=== PATIENT | female | born 1960 | race Caucasian/White ===

== ENCOUNTER → 2025-04-20 | Outpatient (CLI) | payer SELFPAY, OTHER ==
--- NOTE | 2025-04-20 09:53 | CT_ITS ---
PROCEDURE: EXTREMITY UPPER WITHOUT CONTRA 04/20/2025 REASON FOR EXAM: R OLECRANON FRACTURE TECHNIQUE: EXTREMITY UPPER WITHOUT CONTRA Coronal and Sagittal reconstruction series were provided. One or more dose reduction techniques were used (e.g., Automated exposure control, adjustment of the mA and/or kV according to patient size, use of iterative reconstruction technique. RADIATION DOSE SUMMARY: CTDlvol: 27.53 mGy DLP: 569.69 mGycm COMPARISON: None FINDINGS: Bones: Comminuted fracture of the proximal ulna at the base of the olecranon. The trochlea appears intact. Tiny fracture fragment is seen adjacent to the radial head. Capitellum in distal humerus intact otherwise. Joints: No dislocation Soft Tissues: Mild soft tissue hematoma at the fracture site. CT/Extremity Upper without Contra IMPRESSION: Fractures of the proximal ulna at the base of the olecranon with 2 or more frac ture fragments. fracture of the radial head Reading Location: [facility]
== END | disposition home or self-care (01) ==
PROVIDERS: Referring Provider Orthopaedic Surgery Sports Medicine; Visit Provider Orthopaedic Surgery Sports Medicine
DX: S52.021A Displaced fracture of olecranon process without intraarticular extension of right ulna, initial encounter for closed fracture (principal)
CPT/HCPCS: 73200

== ENCOUNTER 2025-04-26 10:05 | Day surgery (SDC) | payer SELFPAY, OTHER ==
[2025-04-26] VITALS (13 sets, daily range): BP systolic 147–180; BP diastolic 71–92; PULSE 56–79; RESP 12–18; TEMP 36–36.4; O2SAT 81–100; BMI 31.5
[2025-04-26] MEDS: Lactated Ringers 1,000 ML 15 ML IV ×2 (10:49→13:44)
--- NOTE | 2025-04-26 11:00 | RAD_ITS ---
PROCEDURE: ELBOW 2 VIEWS; O.R. FLUORO FOR C-ARM 04/26/2025 REASON FOR EXAM: RT ELBOW ORIF TECHNIQUE: Intraoperative fluoroscopy was performed for fixation of a proximal right ulnar fracture site with plate and screws. 4 fluoroscopic images were also obtained. COMPARISON: Right elbow study of 04/20/2020 RAD/Elbow 2 Views IMPRESSION: Intraoperative fluoroscopy was performed for fixation of a proximal right ulnar fracture site with plate and screws. 4 fluoroscopic images were also obtained. Reading Location: [facility]
--- NOTE | 2025-04-26 11:00 | RAD_ITS ---
PROCEDURE: ELBOW 2 VIEWS; O.R. FLUORO FOR C-ARM 04/26/2025 REASON FOR EXAM: RT ELBOW ORIF TECHNIQUE: Intraoperative fluoroscopy was performed for fixation of a proximal right ulnar fracture site with plate and screws. 4 fluoroscopic images were also obtained. COMPARISON: Right elbow study of 04/20/2020 RAD/O.R. Fluoro for C-Arm IMPRESSION: Intraoperative fluoroscopy was performed for fixation of a proximal right ulnar fracture site with plate and screws. 4 fluoroscopic images were also obtained. Reading Location: [place] [address]
--- NOTE | 2025-04-26 11:12 | PCM.PRE.AN2 ---
ASA Classification* ASA Classification ASA Classification: 1 Assessment & Plan Anesthesia* Anesthesia Assessment Anesthesia Assessment: Discussed sedation and/or anesthesia options, risks, benefits, and alternatives with patient/parents/legal guardian/POA. Questions invited. The patient/parents/legal guardian/POA seems to understand and agrees to proceed with anesthesia plan. Reviewed the physical assessment, medical history, allergy history and patient home medications list prior to surgery/procedure/anesthetic and documented any changes. Performed airway and anesthesia risk assessments. Anesthesia Type Anesthesia Type: General and Block History Source History Obtained from:: Patient and Chart Anesthesia Focused Assessment* Temperature: 97.6 F Pulse Rate: 70 Blood Pressure: 165/92 Respiratory Rate: 16 Pulse Ox: 97 Oxygen Delivery Method: Room Air Airway Assessment Mouth opens: >3 cm Mallampati Score: I Teeth Condition: Intact and Missing Neck Range of motion (ROM): Full ROM Labs Anesthesia Preop lab: CBC WBC 4.3 K/mm3 (4.4-11.0) L 06/13/12 10:00 06/13/12 RBC 3.97 M/mm3 (4.2-5.4) L 06/13/12 10:00 06/13/12 Hgb 11.8 g.dL (12.0-15.0) L 06/13/12 10:00 06/13/12 Hct 35.4 % (37-47) L 06/13/12 10:00 06/13/12 Plt Count 196 K/mm3 (150-450) 06/13/12 10:00 06/13/12 CHEMISTRY Potassium 3.8 mmol/L (3.5-5.1) 06/13/12 10:00 06/13/12 Sodium 140 mmol/L (136-145) 06/13/12 10:00 06/13/12 Magnesium 2.1 mg/dL (1.8-2.4) 06/13/12 10:00 06/13/12 Phosphorus 2.8 mg/dL (2.5-4.9) 06/13/12 10:00 06/13/12 BUN 9 mg/dL (7-18) 06/13/12 10:00 06/13/12 Creatinine 0.5 mg/dL (0.6-1.0) L 06/13/12 10:00 06/13/12 Glucose 84 mg/dL (70-110) 06/13/12 10:00 06/13/12 COAG Pre-Assessment Diagnosis/Proposed Procedure Planned Operative Procedure(s): Right olecranon open reduction internal fixation, possible radial head arthroplasty Anesthesia History 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 When Was Last Pacemaker Check QUESTION #4 FULL TEXT: You/Your Family Experience fever (hyperthermia) with Anesthesia Last Oral Intake Last Oral intake: Last Oral Intake NPO since 20:00 04/26/25 10:43 Meds taken in AM with sips of No 04/26/25 10:43 water? Meds patient instructed to take am of surgery PONV PONV - lease administrator: PONV - lease administrator Female HX of Motion Sickness HX of N/V After Surgery Non-Smoker Duration of Surgery greater than 60 minutes Number of Risk Factors PONV Score Height & Weight Height & Weight: Anesthesia: Height & Weight Height 5 ft 3 in 04/26/25 10:43 Weight: 80.8 kg 04/26/25 10:43 Body Mass Index (BMI) 31.5 04/26/25 10:43 Respiratory Assessment Respiratory Assessment - lease administrator: Respiratory Tract Infection Hx - lease administrator Hx Respiratory Tract Infection STOP Sleep Apnea STOP Sleep Apnea - lease administrator: STOP Sleep Apnea - lease administrator Hx Hypertension Hx Sleep Apnea CPAP BIPAP Do you snore loudly (louder than talking or can be heard Do you often feel tired/ fatigued/ sleepy during daytime? Has anyone observed you stop breathing during sleep? STOP Results QUESTION #5 FULL TEXT : Do you snore loudly (louder than talking or can be heard through closed doors)? 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 Specify any problems Hx of Preganancy in last 3 Months Nurse Filling Out Transfusion & Questions: Date: Time: Patient unable to answer at this time (ie. confused, unrespo /Reproduction History /Reproductive History - lease administrator: /Reproductive Hx- lease administrator Hx Now Gestational Age (in weeks): EDC: Hx Hx Para Hx Section SAB Active Medications Active Medications: Current Medications Generic Name Dose Route Start Last Admin Trade Name Freq PRN Reason Stop Dose Admin Cefazolin Sodium 2 gm/ Sodium 110 mls @ 200 mls/hr 04/26/25 12:00 Chloride IV 04/26/25 12:32 INTRAOP ONE Lactated Ringer's 1,000 mls @ 15 mls/hr 04/26/25 10:30 04/26/25 10:49 IV 15 mls/hr .Q48H KIRA Administration PFSH Medical History Fracture of right olecranon process Home Medications ?Medication ?Instructions ?Recorded ?Last Taken ?Type glucosamine sulfate 500 mg tablet 500 mg PO QDAY 04/20/25 04/25/25 History (Glucosamine) lactobacillus combination no.9 4 4,000 mmu cells PO QDAY 04/20/25 04/25/25 History billion cell capsule (Adult 50 Plus Probiotic) Allergy/AdvReac Type Severity Reaction Status Date / Time No Known Allergies Allergy Verified 04/26/25 10:35 Surgical History Hx of section History of appendectomy Review of Systems (Anesthesia) ROS Narrative System reviewed and no additional complaints, except as documented.
--- NOTE | 2025-04-26 11:40 | PCM.HP.STD ---
HPI - General HPI Narrative STARR GUZMAN, is a 65 F who presents for right olecranon open reduction internal fixation, radial head fragment excision and possible radial head arthroplasty. No changes to history and physical exam. Risks alternatives benefits discussed as well as postoperative instructions and narcotic counseling. The patient understands right upper extremity marked okay to proceed with surgery they understood no further questions or concerns. MR#: [id number] Acct: [id number] Name: STARR GUZMAN Rep #: [id number] : 1960 Provider: Dr. Bradford Hogue MD Age/Sex: 64/F Location: [facility] [place].[facility] Status: Signed Intake Vital Signs 04/20/2508:36 Height 5 ft 3 in Weight: 178 lb BMI 31.5 BP 130/84 H Position Sitting Pulse 77 Temp 98.3 F Temp Source Oral Pulse Oximetry (%) 97 Oxygen Delivery Method room air Intake Visit Reasons: RIGHT ELBOW Chief Complaint: Elbow Pain Is patient in pain?: No Allergies No Known Allergies Allergy (Verified 04/23/25 08:09) Medications ?Medication ?Instructions ?Recorded ?Confirmed ?Type glucosamine sulfate 500 mg tablet 500 mg PO QDAY 04/20/25 04/23/25 History (Glucosamine) lactobacillus combination no.9 4 4,000 mmu cells PO QDAY 04/20/25 04/23/25 History billion cell capsule (Adult 50 Plus Probiotic) PFSH Medical History Fracture of right olecranon process Surgical History Hx of section History of appendectomy HPI RIGHT ELBOW Details: This documentation accurately reflects the service provided and the decisions made by me, Dr. Bradford Hogue MD 04/23/25 0808. Part of today?s visit was documented by [ ], acting as scribe. STARR GUZMAN is a 64 year old F here today for R olecranon fracture. 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 per referral 64 F who presents to the office today for initial evaluation of right elbow pain. Patient states that 5 days ago she fell hitting her right elbow and wrist. She has had significant pain particularly to the elbow since then. Patient denies numbness, tingling or loss of range of motion however states that range of motion of the elbow causes worse pain. No previous injuries to the same. No other associated symptoms or alleviating/aggravating factors. Supplemental Info [facility] Imaging Services [address] [place] [address] Extremity Upper without Contra MR#: [id number] Acct: [id number] Name: STARR GUZMAN Rep #: [id number] : 1960 F 64 From: Anton Chavez DO PCP: Care Physician,No Primary Status: REG CLI Study: Extremity Upper without Contra Date of Exam: 04/20/25 Exam# [id number] Ordering Dr: Bradford Hogue MD PROCEDURE: EXTREMITY UPPER WITHOUT CONTRA 04/20/2025 REASON FOR EXAM: R OLECRANON FRACTURE TECHNIQUE: EXTREMITY UPPER WITHOUT CONTRA Coronal and Sagittal reconstruction series were provided. One or more dose reduction techniques were used (e.g., Automated exposure control, adjustment of the mA and/or kV according to patient size, use of iterative reconstruction technique. RADIATION DOSE SUMMARY: CTDlvol: 27.53 mGy DLP: 569.69 mGycm COMPARISON: None FINDINGS: Bones: Comminuted fracture of the proximal ulna at the base of the olecranon. The trochlea appears intact. Tiny fracture fragment is seen adjacent to the radial head. Capitellum in distal humerus intact otherwise. Joints: No dislocation Soft Tissues: Mild soft tissue hematoma at the fracture site. CT/Extremity Upper without Contra IMPRESSION: Fractures of the proximal ulna at the base of the olecranon with 2 or more fracture fragments. fracture of the radial head Reading Location: [facility] May be a radial head fracture, under 30 percent of joint surface. I independently reviewed the imaging. Concur with radiologist report. Coding Level of Care Code Off vis,new,level 4 Diagnoses Closed comminuted fracture of proximal end of right ulna S52.091A Closed comminuted fracture of proximal end of right radius S52.181A Assessment and Plan Assessment and Plan (1) Closed comminuted fracture of proximal end of right ulna: Status: Acute Plan: 64-year-old female with a proximal ulna olecranon fracture. There also appears to be radial head fracture under 30% of the surface of the radial head multiple small comminuted fragments. After reviewing the x-rays the patient's functional demand and on the dominant arm overall my recommendation would be more toward surgical management of this the other option would be nonsurgical management ...but with the latter more high rates of stiffness due to prolonged immobilization and potential displacement of the fracture as well as chance of leaving the intra-articular fragments in the joint and causing long-term problems such as osteoarthritis. That being said surgery has its own set of risks like hardware irritation infection neurovascular injuries or other problems. Patient understands wishes to go ahead with right olecranon open reduction internal fixation, radial head fragment excision and possible radial head arthroplasty. We will try to get this done week she understands no further concerns. Pros and cons risks and benefits were discussed with the patient including but not limited to infection, pain, stiffness, bleeding, damage to surrounding structures, neurovascular injury, recurrence or retear, failure or wear of hardware or fixation, instability, fracture, deep vein thrombosis and pulmonary embolism, anesthetic risks, , patient dissatisfaction, need for further surgery and other risks. Patient understood and wished to proceed with surgery, and signed the informed consent documentation. (2) Closed comminuted fracture of proximal end of right radius: Status: Acute Ortho Exam General General: Yes no acute distress Neurologic: Yes alert and Yes oriented x3 Psychologic: Yes reasonable and appropriate Right Elbow Skin/Wound: Yes CDI, No eccymosis, No erythema and Yes Swelling Sensation: Radial: I, Ulnar: I and Median: I Motor: EPL: 5, FDP-2: 5 and 1st Dorsal Interosseous: 5 ELBOW: nvi, strong radial pulse, hand a bit swollen, no pain hand or shoulder. [facility] Medical History Fracture of right olecranon process Home Medications ?Medication ?Instructions ?Recorded ?Last Taken ?Type glucosamine sulfate 500 mg tablet 500 mg PO QDAY 04/20/25 04/25/25 History (Glucosamine) lactobacillus combination no.9 4 4,000 mmu cells PO QDAY 04/20/25 04/25/25 History billion cell capsule (Adult 50 Plus Probiotic) Allergy/AdvReac Type Severity Reaction Status Date / Time No Known Allergies Allergy Verified 04/26/25 10:35 Surgical History Hx of section History of appendectomy Vital Signs Vital Signs Vital Signs: 04/26/25 10:43 04/26/25 10:43 04/26/25 11:18 Temperature 97.6 F L 97.6 F L Temperature Source Temporal Pulse Rate 70 70 Respiratory Rate 16 16 Respiratory Pattern Normal Blood Pressure 165/92 H 165/92 H Blood Pressure Mean 116 Blood Pressure Source Monitor Blood Pressure Position Sitting Blood Pressure Location Right Arm Pulse Ox 97 97 Oxygen Delivery Method Room Air Room Air Weight Weight: 178 lb 2.136 oz Body Mass Index (BMI) 31.5
--- NOTE | 2025-04-26 12:58 | PCM.OPRPT ---
Problems Associated Problem List Diagnoses (1) Closed comminuted fracture of proximal end of right radius: (2) Closed comminuted fracture of proximal end of right ulna: (3) Fracture of right olecranon process: Procedures Musculoskeletal [id number]: Other Procedure See Report Operative Report (Standard) Operative Information Date of Procedure: 04/26/25 Pre-Operative Diagnosis: R proximal ulna fracture and proximal radial fracture Post-Operative Diagnosis: R proximal ulna fracture and proximal radial fracture Surgery/Procedure Performed: R proximal ulnar ORIF, excision radial head fragment, non op mgt radial head fracture uniforms sales representative: Yes Manager Stylist: henrique Tasks completed by executive personal assistant: Retracting Additional baking assistant?: No Type of Anesthesia: General and Local RN Documented Start/Stop Times: Operation Date: 04/26/25 12:00 Case Time Into Pre-Op 04/26/25 10:16 Out of Pre-Op 04/26/25 11:46 Anesthesia Start 04/26/25 11:47 Into Room 04/26/25 11:47 Procedure Start 04/26/25 12:06 Procedure End 04/26/25 12:56 Procedure Start Time: 12:06 Procedure Stop Time: 12:56 Select all DRAINS/GRAFTS/IMPLANTS that apply: Implanted device Implanted device details: arthex olecranon pre contoured plate long Estimated Blood Loss: 20 Specimen collected: No Description of surgery: Patient brought to the operating room theater. Placed supine on the table. General anesthesia induced. 2 g IV Ancef administered prior to the start of the procedure. Bed turned to 90 degrees. Hand table to the patient's right side. Tourniquet applied right upper extremity appropriately padded. All bony prominences padded. SCDs on the legs. Upper extremity prepped and draped in the usual sterile fashion with chlorhexidine-based prep solution allowing over 3 minutes drying time prior to draping. Preoperative timeout performed to confirm the site patient and the surgery. Began by elevating the limb inflating the tourniquet to 250 mmHg. Made a standard posterior incision at the proximal subcutaneous border of the ulna curved laterally around the olecranon tip. Carried the dissection down through skin and subcutaneous tissue achieved meticulous hemostasis. Incised the interval between the FCU and the ECU. Dissected down to the subcutaneous border of the proximal ulna identified the fracture site cleared away any interposed hematoma and fracture periosteum. Worked through the lateral comminution aspect of the ulnar fracture to the radiocapitellar joint thoroughly irrigated the joint and removed any intra-articular fragments. The radial head appeared to be intact with good cartilage surface with very small fracture fragments with a stable radial capitellar joint. I achieved a preliminary reduction. I did this in extension of the elbow. I made a small 2.5 mm drill hole distal to the fracture site then used a pointed reduction forcep clamp across that to thoroughly compress at the fracture site this achieved good anatomic reduction. I then selected the [employer]ynthe[employer] proximal ulna precontoured long plate. I placed this on the bone. I made a split in the triceps proximally to try to get the plate as onto the bone as possible proximally. I then secured this with a top hat device as well as drilling a 3.5 mm fully threaded cortical screw distal to the fracture site through the oblong hole in the plate. I ensured the plate was appropriately placed on the subcutaneous border of the ulna growth with AP and lateral radiographs. I then inserted 3 more fully threaded cortical screws which achieved quite good purchase distal to the fracture site. I then also placed the 2.7 millimeter screws proximally in a locking screw fashion that were all extra-articular 2 that were rafting screws and 6 screws total. Final radiographs were taken. Full range of motion no crepitus full flexion and extension no blocks to extension full pronation and supination with the elbow stable to varus and valgus stresses. Final radiographs taken and saved onto the system. Wound thoroughly irrigated. Tourniquet let down meticulous hemostasis achieved. Subcutaneous tissue closed with 2-0 Vicryl suture and skin with 3-0 Monocryl. Skin cleaned with wet and dry dressing. 10 cc of quarter percent bupivacaine instilled in and around the soft tissues. Skin cleaned with wet and dry dressing followed application of Steri-Strips Adaptic 4 x 4 gauze ABD dressing posterior prefabricated fiberglass splint with the elbow at 90 degrees of flexion gently overwrapped with Andriy bandage and placed into an upper extremity sling. Patient woken up from general anesthetic transferred off the operating room table taken to postanesthetic care unit in stable condition. All sponge needle instrument counts were correct no complications plan to the patient discharged home according to day surgery criteria and follow-up in the office within 2 weeks time. cpt 92209, [id number], [id number] Surgical Findings: as above Complications Complications: No Admit VTE Documentation VTE Present on Admission: No VTE Mechan Device Prophylaxis: SCD's VTE Pharm Prophylaxis ordered?: No Reason prophylaxis not ordered: Treatment Not Indicated
--- NOTE | 2025-04-26 13:08 | EX.PCM.DISCH ---
Discharge Instructions Diet Discharge Diet: No restrictions Activity Discharge Activity: Return to Normal Activity Ice area for (Minutes): 10 Lifting Restrictions: keep arm in sling and splint until FU Additional Activity Instructions:: ok for finger movement Dressing / Incision Call your doctor if your incision/area has: Continuous Slow Oozing, Sudden Increased Bleeding, Increased Pain/ Swelling, Increased Redness, Foul Smelling Discharge and Swelling at the incision site Call your doctor if you observe: Fever of 101 or Higher, Coldness, Increased Pain and Numbness or Tingling Change Dressing in: leave in place till F/U Cleanse incision/area with: Do not get Incision Wet Follow Up Care Please Follow Up With: Bradford Hogue MD When: within 2 weeks Test Results: Test results from this visit will be discussed in further detail at your follow-up appointment, if applicable. Discharge Plan Admission Attending Provider: Bradford Hogue Primary Care Provider: Care Physician,No Primary Instructions Print Language: [place] Discharge Orders/Prescriptions Prescriptions: New oxycodone-acetaminophen [Endocet] 5-325 mg tablet 1 tab PO Q4H MDD 6 PRN (Reason: pain) 5 Days Qty: 20 0RF No Action glucosamine sulfate [Glucosamine] 500 mg tablet 500 mg PO QDAY Rx Instructions: administer with a meal Adult 50 Plus Probiotic 4 billion cell capsule 4,000 mmu cells PO QDAY Rx Instructions: administer with a meal Referrals / Follow Up: Bradford Hogue MD [Med Staff - Active Staff] - Care Physician,No Primary [Primary Care Provider] - Disposition Disposition (needs filled in before D/C Order can be placed): Home, Self Care
--- NOTE | 2025-04-26 13:10 | PCM.POST.ANE ---
Anesthesia: Postop Eval I Current Vital Signs Temperature: 97 F Pulse Rate: 63 Blood Pressure: 147/83 Respiratory Rate: 12 Pulse Ox: 93 Oxygen Delivery Method: Nasal Cannula Oxygen Flow Rate (L/min): 2 Assessment Airway patent: Yes Spontaneous unlabored respirations: Yes Mental status: Awake and Calm nausea: No Vomiting: No Anesthesia Complication: No Fluid Hydration Crystalloid volume administer (ml): 900 Total IV fluid infused: 900 Progress Note Anesthesia document: Postop Eval 1 completed: Yes
--- NOTE | 2025-04-26 14:42 | POSTOPAN2_ITS ---
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 Spontaneous unlabored Yes 04/26/25 13:10 SMALL PRODUCTS II [email or web address] respirations Mental status Awake,Calm 04/26/25 13:10 SMALL PRODUCTS II [email or web address] nausea No 04/26/25 13:10 SMALL PRODUCTS II [email or web address] Vomiting No 04/26/25 13:10 SMALL PRODUCTS II [email or web address] Anesthesia Postop Eval I: Fluid Summary Crystalloid volume administer 900 04/26/25 13:10 SMALL PRODUCTS II [email or web address] (ml) Colloids volume administered ( ml) Blood Product volume administered (ml) Total IV fluid infused 900 04/26/25 13:10 SMALL PRODUCTS II [email or web address] Anesthesia Postop Eval I: Summary Notes Anesthesia Complication No 04/26/25 13:10 SMALL PRODUCTS II 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
--- NOTE | 2025-04-26 14:42 | PCM.POSTANE2 ---
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 Anesthesia Postop Eval I: Fluid Summary Crystalloid volume administer 900 04/26/25 13:10 ROLL FORMING MACHINE OPERATOR.[email or web address] (ml) Colloids volume administered ( ml) Blood Product volume administered (ml) Total IV fluid infused 900 04/26/25 13:10 ROLL FORMING MACHINE 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
[2025-04-26] MEDS: HYDROcodone Bitartrate/Apap 5/325 Tablet PO (15:26)
--- OUTSIDE RECORDS SUMMARY | 2025-04-26 18:34 | XMS RPT_ITS | CCD ---
Author Organization [facility] Team Providers Care Musician Instrumental Name Role Phone Dr. Fran Ho MD Attending Provider Colton Martin Attending Provider [phone] Bradford Hogue MD Attending Provider [id number] [phone] Bradford Hogue MD Referring Provider Care Physician, No Primary Primary Care Provider Unavailable Fran Ho Attending Unavailable Bradford Hogue Attending Unavailable Bradford Hogue Referring Unavailable Care Physician, No Primary Primary Care Unava ilable Bradford Hogue Attending Unavailable Bradford Hogue Referring Unavailable Colton Martin Attending Unavailable Bradford Hogue Attending Unavailable Bradford Hogue MD Other Provider [phone] Medications Current Medications Medication Drug Class(es) Dates Sig (Normalized) Sig (Original) acetaminophen 325 mg / oxyCODONE hydrochloride 5 mg oral tablet (1 source) Opioid Agonist Start: 04-26-2025 take 1 tablet by mouth every four hours as needed for pain Oxycodone-Acetamino phen (Endocet) 5-325 mg tablet Active 1 {tbl} PO Q4H as needed for pain 20 5 0 April 26, 2025 Fracture of olecranon process of right ulna Closed comminuted fracture of proximal end of right radius Closed comminuted fracture of proximal end of right ulna glucosamine sulfate 500 mg oral tablet (4 sources) Start: 04-20-2025 take 1 tablet by mouth once daily Glucosamine Sulfate (Glucosamine) 500 mg tablet Active 500 mg PO daily April 20, 2025 12:00am administer with a meal Lactobacillus Combination No.9 (Adult 50 Plus Probiotic) 4 billion cell capsule (4 sources) Start: 04-20-2025 take 4 capsules by mouth once daily Lactobacillus Combination No.9 (Adult 50 Plus Probiotic) 4 billion cell capsule Active 4000 NMA PO daily April 20, 2025 12:00am administer with a meal Problems Problem Classification Problem Date Documented Date Episodic/Chronic Fracture of upper limb (20 sources) Displaced fracture of olecranon process without intraarticular extension of right ulna, initial encounter for closed fracture; Translations: [Fracture of olecranon process of right ulna] Onset: 04-23-2025 04-20-2025 Episodic Other non-traumatic joint disorders (1 source) Pain in right elbow; Translations: [Pain in right elbow] Onset: 04-20-2025 Episodic Other non-traumatic joint disorders (1 source) Pain in right wrist; Translations: [Pain in right wrist] Onset: 04-20-2025 Episodic Results Test Name Value Interpretation Reference Range Facil ity Orthopedic Visit Reporton Orthopedic Visit Report [facility] [address] [place] [address] OFFICE VISIT Date of Service: 04/23/25 MR#: [id number] Acct: [id number] Name: STARR GUZMAN Rep #: [id number] : 1960 Provider: Dr. Bradford hurley MD Age/Sex: 64/F Location[place] [facility] Status: Signed Intake Vital Signs 04/20/25 08:36 Height 5 ft 3 in Weight: 178 lb BMI 31.5 BP 130/84 H Position Sitting Pulse 77 Temp 98.3 F Temp Source Oral Pulse Oximetry (%) 97 Oxygen Delivery Method room air Intake Visit Reasons: RIGHT ELBOW Chief Complaint: Elbow Pain Is patient in pain?: No Allergies No Known Allergies Allergy (Verified 04/23/25 08:09) Medications ???Medication ???Instructions ???Recorded ???Confirmed ???Type glucosamine sulfate 500 mg tablet 500 mg PO QDAY 04/20/25 04/23/25 History (Glucosamine) lactobacillus combination no.9 4 4,000 mmu cells PO QDAY 04/20/25 0 04/23/25 History billion cell capsule (Adult 50 Plus Probiotic) PFSH Medical History Fracture of right olecranon process Surgical History Hx of section History of appendectomy HPI RIGHT ELBOW Details: This documentation accurately reflects the service provided and the decisions made by me, Dr. Bradford Hogue MD 04/23/25 0808. Part of today???s visit was documented by [ ], acting as scribe. STARR GUZMAN is a 64 year old F here today for R olecranon fracture. 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 per referral 64 F who presents to the office today for initial evaluation of right elbow pain. Patient states that 5 days ago she fell hitting her right elbow and wrist. She has had significant pain particularly to the elbow since then. Patient denies numbness, tingling or loss of range of motion however states that range of motion of the elbow causes worse pain. No previous injuries to the same. No other associated symptoms or alleviating/aggravati ng factors. Supplemental Info [facility] [address] [place], [place] [address] Extremity Upper without Contra MR#: [id number] Acct: [id number] Name: STARR GUZMAN Rep #: [id number] : 1960 F 64 From: Anton Chavez DO PCP: Care Physician,No Primary Status: REG CLI Study: Extremity Upper without Contra Date of Exam: 04/20/25 Exam# [id number] Ordering Dr: Bradford Hogue MD PROCEDURE: EXTREMITY UPPER WITHOUT CONTRA 04/20/2025 REASON FOR EXAM: R OLECRANON FRACTURE TECHNIQUE: EXTREMITY UPPER WITHOUT CONTRA Coronal and Sagittal reconstruction series were provided. One or more dose reduction techniques were used (e.g., Automated exposure control, adjustment of the mA and/or kV according to patient size, use of iterative reconstruction technique. RADIATION DOSE SUMMARY: CTDlvol: 27.53 mGy DLP: 569.69 mGycm COMPARISON: None FINDINGS: Bones: Comminuted fracture of the proximal ulna at the base of the olecranon. The trochlea appears intact. Tiny fracture fragment is seen adjacent to the radial head. Capitellum in distal humerus intact otherwise. Joints: No dislocation Soft Tissues: Mild soft tissue hematoma at the fracture site. CT/Extremity Upper without Contra IMPRESSION: Fractures of the proximal ulna at the base of the olecranon with 2 or more fracture fragments. fracture of the radial head Reading Location: [facility] May be a radial head fracture, under 30 percent of joint surface. I independently reviewed the imaging. Concur with radiologist report. Coding Level of Care Code Off vis,new,level 4 Diagnoses Closed comminuted fracture of proximal end of right ulna S52.091A Closed comminuted fracture of proximal end of right radius S52.181A Assessment and Plan Assessment and Plan (1) Closed comminuted fracture of proximal end of right ulna: Status: Acute Plan: 64-year-old female with a proximal ulna olecranon fracture. There also appears to be radial head fracture under 30% of the surface of the radial head multiple small comminuted fragments. After reviewing the x-rays the patient's functional demand and on the dominant arm overall my recommendation would be more toward surgical management of this the other option would be nonsurgical management ...but with the latter more high rates of stiffness due to prolonged immobilization and potential displacement of the fracture as well as chance of leaving the int (more content not included)... Normal [facility] Elbow min 3 Viewson 04-20-20 Elbow min 3 Views [facility] [address] [place], [place] [address] Elbow min 3 Views MR#: [id number] Acct: [id number] Name: STARR GUZMAN Rep #: [id number] : 1960 F 64 From: Jack Mccormick MD PCP: Status: DEP AMB Study: Elbow min 3 Views Date of Exam: 04/20/25 Exam# [id number] Ordering Dr: Colton Sevilla PA EXAM: XR Right Elbow Complete, 3 or More Views CLINICAL INDICATION: FALL, PAIN TECHNIQUE: Frontal, lateral and oblique views of the right elbow. COMPARISON: No relevant prior studies available. FINDINGS: BONES/JOINTS: Comminuted mildly displaced fracture of the proximal ulnar and radius. Fracture likely extends into the joints. No dislocation. SOFT TISSUES: Soft tissue swelling. RAD/Elbow min 3 Views IMPRESSION: Comminuted mildly displaced fracture of the proximal ulnar and radius. Fracture likely extends into the joints. Reading Location: [facility] CC: FABRIZIO Barbour Salvage Supervisor: Signed Normal [facility] Extremity Upper without Cont raon 04-20-2025 Extremity Upper without Contra [facility] [address] [place] [address] Extremity Upper without Contra MR#: [id number] Acct: [id number] Name: STARR GUZMAN Rep #: [id number] : 1960 F 64 From: Anton Chavez DO PCP: Care Physician,No Primary Status: REG CLI Study: Extremity Upper without Contra Date of Exam: 0 04/20/25 Exam# [id number] Ordering Dr: Bradford Hogue MD PROCEDURE: EXTREMITY UPPER WITHOUT CONTRA 04/20/2025 REASON FOR EXAM: R OLECRANON FRACTURE TECHNIQUE: EXTREMITY UPPER WITHOUT CONTRA Coronal and Sagittal reconstruction series were provided. One or more dose reduction techniques were used (e.g., Automated exposure control, adjustment of the mA and/or kV according to patient size, use of iterative reconstruction technique. RADIATION DOSE SUMMARY: CTDlvol: 27.53 mGy DLP: 569.69 mGycm COMPARISON: None FINDINGS: Bones: Comminuted fracture of the proximal ulna at the base of the olecranon. The trochlea appears intact. Tiny fracture fragment is seen adjacent to the radial head. Capitellum in distal humerus intact otherwise. Joints: No dislocation Soft Tissues: Mild soft tissue hematoma at the fracture site. CT/Extremity Upper without Contra IMPRESSION: Fractures of the proximal ulna at the base of the olecranon with 2 or more fracture fragments. fracture of the radial head Reading Location: [facility] CC: Dr. Bradford Hogue MD; No Primary Care Physician Salvage Supervisor: Signed Normal [facility] Urgent Care Visit Reporton 0 04-20-2025 Urgent Care Visit Report [facility] [address], [address] [place], [place] [address] OFFICE VISIT Date of Service: 04/20/25 MR#: [id number] Acct: [id number] Name: STARR GUZMAN Rep #: [id number] : 1960 Provider: FABRIZIO Barbour Age/Sex: 64/F Location[place] [facility] [place] Status: Signed Intake Vital Signs 04/20/25 08:36 Height 5 ft 3 in Weight: 178 lb BMI 31.5 BP 130/84 H Position Sitting Pulse 77 Temp 98.3 F Temp Source Oral Pulse Oximetry (%) 97 Oxygen Delivery Method room air Intake Visit Reasons: elbow injury Chief Complaint: Elbow Pain Accompanied by: Self Allergies No Known Allergies Allergy (Verified 04/20/25 08:25) Medications ???Medication ???Instructions ???Recorded ???Confirmed ???Type glucosamine sulfate 500 mg tablet 500 mg PO QDAY 04/20/25 04/20/25 History (Glucosamine) lactobacillus combination no.9 4 4,000 mmu cells PO QDAY 04/20/25 0 04/20/25 History billion cell capsule (Adult 50 Plus Probiotic) Have you fallen in the past year?: Yes Nurse's Note: Patient was out on a walk on Wednesday and fell on her right elbow while walking. Was swollen, but swelling went down. Still painful, cannot reach up or out. Taking Motrin, Icing and using a red healing light. [facility] Medical History (Updated 04/20/25 @ 12:41 by FABRIZIO Martinez) Fracture of right olecranon process Surgical History (Updated 04/20/25 @ 08:35 by Elba Infante MA) Hx of section History of appendectomy [facility] HPI Chief Complaint: Elbow Pain Details: STARR GUZMAN, is a 64 F who presents to the office today for initial evaluation of right elbow pain. Patient states that 5 days ago she fell hitting her right elbow and wrist. She has had significant pain particularly to the elbow since then. Patient denies numbness, tingling or loss of range of motion however states that range of motion of the elbow causes worse pain. No previous injuries to the same. No other associated symptoms or alleviating/aggravati ng factors. ROS Const Constitutional: No other (6 system ROS completed with pertinent findings in the HPI otherwise normal.) Exam Const General: cooperative and healthy appearing Skin General: no rashes or lesions noted Neuro General: patient alert Extrem General: full ROM and capillary refill normal Other: Pain palpation right posterior elbow without obvious deformity. Appropriate distal sensation to light touch along with capillary refill intact throughout. Psych Appearance: grossly normal Mental Status: mental status grossly normal Coding Level of Care Code Off vis,new,level 4 Diagnoses Closed comminuted fracture of proximal end of right radius S52.181A Closed comminuted fracture of proximal end of right ulna S52.091A Assessment and Plan Assessment and Plan (1) Closed comminuted fracture of proximal end of right radius: Status: Acute (2) Closed comminuted fracture of proximal end of right ulna: Status: Acute Orders: Orders Elbow min 3 Views Today M25.521 - Pain in right elbow Wrist min 3 Views Today M25.531 - Pain in right wrist Plan Three-view x-ray of the right elbow read and interpreted by myself finding comminuted fractures of both the proximal radius and ulna. Awaiting radiology interpretation at time of patient discharge. Three-view right wrist x-rays read and interpreted by myself findings no acute osseous abnormalities. Naproxen as prescribed today. Patient placed in a right long-arm splint and sent for CT today at the hospital. I did coordinate with [facility] to have her seen on Wednesday for further evaluation and treatment. Patient advised of RICE techniques as well as other symptomatic management techniques. Advised to use ibuprofen or Tylenol as needed for pain unless contraindicated. Advised of potential red flags and when appropriate to report to the ED. Patient verbalized understanding and agreement with all the above. Clinical Quality Measures Falls Risk Screening/Assistive Devices Have you fallen in the past year?: Yes 04/20/25 1244 Date Colton Wilder Signature: Date (if applicable) CC: Normal [facility] Wrist min 3 Viewson 04-20-20 Wrist min 3 Views [facility] [address] [place], [place] [address] Wrist min 3 Views MR#: [id number] Acct: [id number] Name: STARR GUZMAN Rep #: [id number] : 1960 F 64 From: Jack Mccormick MD PCP: Status: DEP AMB Study: Wrist min 3 Views Date of Exam: 04/20/25 Exam# [id number] Ordering Dr: Colton Sevilla EXAM: XR Right Wrist Complete, 3 or More Views CLINICAL INDICATION: FALL, PAIN TECHNIQUE: Frontal, lateral and oblique views of the right wrist. COMPARISON: No relevant prior studies available. FINDINGS: BONES/JOINTS: See below. SOFT TISSUES: Soft tissue swelling without acute fracture. No radiopaque foreign body. RAD/Wrist min 3 Views IMPRESSION: 1. Soft tissue swelling without acute fracture. 2. If symptoms persist, further evaluation with CT is recommended. Reading Location: [facility] CC: FABRIZIO Barbour Salvage Supervisor: Signed Normal [facility] Vital Signs Date Time Vital Sign Value Performing Clinician Faci lity 04-26-2025 14:58-0400 Body temperature 97.4 [degF] Bradford Hogue MD Work Phone: [facility] 04-26-2025 14:58-0400 Diastolic blood pressure 82 mm[Hg] Bradford Hogue MD Work Phone: [facility] 04-26-2025 14:58-0400 Heart rate 72 /min Bradford Hogue MD Work Phone: [facility] 04-26-2025 14:58-0400 Respiratory rate 18 /min Bradford Hogue MD Work Phone: [facility] 04-26-2025 14:58-0400 SaO2% (BldA) [Mass fraction] 97 % Bradford Hogue MD Work Phone: [facility] 04-26-2025 14:58-0400 Systolic blood pressure 165 mm[Hg] Bradford Hogue MD Work Phone: [facility] 04-26-2025 14:30-0400 Inhaled oxygen flow rate 2 L/min Bradford Hogue MD Work Phone: [facility] 04-26-2025 10:43-0400 Body height 160.02 cm Bradford Hogue MD Work Phone: [facility] 04-26-2025 10:43-0400 Body mass index (BMI) [Ratio] 31.5 kg/m2 Bradford Hogue MD Work Phone: [facility] 04-26-2025 10:43-0400 Body weight 80.8 kg Bradford Hogue MD Work Phone: [facility] 04-20-2025 08:36-0400 Body height 160.[address] Fran Ho MD Work Phone: [facility] 04-20-2025 08:36-0400 Body mass index (BMI) [Ratio] 31.5 kg/m2 Dr. Fran Ho MD Work Phone: [facility] 04-20-2025 08:36-0400 Body temperature 98.3 [degF] Dr. Fran Ho MD Work Phone: [facility] 04-20-2025 08:36-0400 Body weight 80.[address] Fran Ho MD Work Phone: [facility] 04-20-2025 08:36-0400 Diastolic blood pressure 84 mm[Hg] Dr. Fran Ho MD Work Phone: [facility] 04-20-2025 08:36-0400 Heart rate 77 /min Dr. Fran Ho MD Work Phone: [facility] 04-20-2025 08:36-0400 SaO2% (BldA) [Mass fraction] 97 % Dr. Fran Ho MD Work Phone: [facility] 04-20-2025 08:36-0400 Systolic blood pressure 130 mm[Hg] Dr. Fran Ho MD Work Phone: [facility] Encounters Encounter Date Encounter Type Care Provider Facility Start: 04-26-2025 ambulatory Bradford Hogue Facility :[facility] Start: 04-26-2025 Non-patient / Non-visit Dr. Bradford deleon MD -[facility] Start: 04-26-2025 End: 04-26-2025 Admission to same day surgery center Dr. Bradford Hogue MD [facility] Start: 04-26-2025 End: 04-26-2025 ambulatory Bradford Hogue MD Work Phone: [facility] Start: 04-23-2025 End: 04-23-[address] Bradford Hogue MD -[facility] Work Phone: Start: 04-23-2025 End: 04-23-2025 ambulatory Bradford oHgue MD Work Phone: -[facility] Start: 04-20-2025 End: 04-20-2025 ambulatory Bradford Hogue MD Work Phone: -[facility] Start: 04-20-2025 End: 04-20-[address] Bradford Hogue MD -[facility] Work Phone: Start: 04-20-2025 End: 04-20-[address] Fran Ho MD -[facility] Start: 04-20-2025 End: 04-20-2025 ambulatory Colton DINH -[facility] Start: 04-20-2025 End: 04-20-2025 ambulatory Bradford Hogue Facility:[facility] Procedures Date Procedure Procedure Detail Performing Clinician Start: 04-26-2025 Open reduction with internal fixation Bradford Hogue MD Work Phone: Start: 04-26-2025 Fluoroscopic guidance Lali Hogue MD Work Phone: Start: 04-26-2025 Plain x-ray of elbow Ramy Hogue MD Work Phone: Start: 04-20-2025 CT of upper limb wit hout contrast Bradford Hogue MD Work Phone: Start: 04-20-2025 Plain x-ray of elbow Dr Aneudy Ho MD Work Phone: Start: 04-20-2025 Plain x-ray of wrist Dr Aneudy Ho MD Work Phone: Plan of Treatment Date Care Activity Detail Author Start: 04-26-2025 Patient discharge [facility] Start: 04-26-2025 Application of ice c ollar, cap or bag [facility] Start: 04-26-2025 Assessment of risk o f venous thromboembolism [facility] Start: 04-26-2025 Catheterization of vein [facility] Start: 04-26-2025 Continuous positive airway pressure ventilation treatment [facility] Start: 04-26-2025 Following clinical p athway protocol [facility] Start: 04-26-2025 Incentive spirometry [facility] Start: 04-26-2025 Introduction of urin eri catheter [facility] Start: 04-26-2025 Provision of activit y privileges [facility] Start: 04-26-2025 Vital signs measurements [facility] Start: 04-26-2025 [facility] Start: 04-20-2025 Plain x-ray of elbow Elbow min [address] [facility] Start: 04-20-2025 Plain x-ray of wrist Wrist min [address] [facility] Payers Date Payer Category Payer Self-pay 2025 Unknown [id number] 2025 Unknown 2025 Unknown 0 Unknown [id number] [id number] Unknown [id number] 2.16.8 [id number] Unknown [id number] 2.16.8 [id number] Unknown [id number] 2.16.8 [id number] Unknown [id number] 2.16.8 [id number] Social History Date Type Detail Facility Tobacco smoking stat us [facility] Unknown if ever [place] [facility] [place]: Start: 1960 Sex Assigned At Female [facility] Goals Date Patient Goal Desired Activity /State Mental Status Date Assessment Result Facility 04-26-2025 Cognitive function Voice/Name [facility] Work Phone: Clinical Notes 04-20-2025 to 04-26-2025 Note Date & Type Note Facility 04-26-2025 Radiology Diagnostic study note [facility] [address] [place], [place] [id number] Elbow 2 Views MR#: [id number] Acct: [id number] Name: STARR GUZMAN Rep #: [id number] : 1960 F 65 From: John Dietz MD PCP: Care Physician,No Primary Status: REG [facility] Study:Elbow 2 Views Date of Exam: Exam# [id number] Ordering Dr: Bradford Hogue MD PROCEDURE: ELBOW 2 VIEWS; O.R. FLUORO FOR C-ARM 04/26/2025 REASON FOR EXAM: RT ELBOW ORIF TECHNIQUE: Intraoperative fluoroscopy was performed for fixation of a proximal right ulnar fracture site with plate and screws. 4 fluoroscopic images were also obtained. COMPARISON: Right elbow study of 04/20/2020 RAD/Elbow 2 Views IMPRESSION: Intraoperative fluoroscopy was performed for fixation of a proximal right ulnar fracture site with plate and screws. 4 fluoroscopic images were also obtained. Reading Location: [facility] CC: Dr. Bradford Hogue MD; No Primary Care Physician ~ Salvage Supervisor: Signed [facility] 04-26-2025 Radiology Diagnostic study note [facility] [address] [place] [address] O.R. Fluoro for C-Arm MR#: [id number] Acct: [id number] Name: STARR GUZMAN Rep #: [id number] : 1960 F 65 From: John Dietz MD PCP: Care Physician,No Primary Status: REG SDC Study:O.R. Fluoro for C-Arm Date of Exam: 04/26/25 Exam# [id number] Ordering Dr: Bradford Hogue MD PROCEDURE: ELBOW 2 VIEWS; O.R. FLUORO FOR C-ARM 04/26/2025 REASON FOR EXAM: RT ELBOW ORIF TECHNIQUE: Intraoperative fluoroscopy was performed for fixation of a proximal right ulnar fracture site with plate and screws. 4 fluoroscopic images were also obtained. COMPARISON: Right elbow study of 04/20/2020 RAD/O.R. Fluoro for C-Arm IMPRESSION: Intraoperative fluoroscopy was performed for fixation of a proximal right ulnar fracture site with plate and screws. 4 fluoroscopic images were also obtained. Reading Location: [place] [address] CC: Dr. Bradford Hogue MD; No Primary Care Physician ~ Salvage Supervisor: Signed [facility] 04-26-2025 Discharge summary Note Date/Time April 26, 2025 1:11 pm [facility] Medical Records Department [address] [place] [address] Instructions for Home/Discharge Instructions 04/26/25 1308 MR#: [id number] Acct: [id number] Name: STARR GUZMAN Rep #:[id number] : 1960 65 From: Bradford Hogue MD PCP: Care Physician,No Primary Status :REG SDC Discharge Instructions Diet Discharge Diet: No restrictions Activity Discharge Activity: Return to Normal Activity Ice area for (Minutes): 10 Lifting Restrictions: keep arm in sling and splint until FU Additional Activity Instructions:: ok for finger movement Dressing / Incision Call your doctor if your incision/area has: Continuous Slow Oozing, Sudden Increased Bleeding, Increased Pain/ Swelling, Increased Redness, Foul Smelling Discharge and Swelling at the incision site Call your doctor if you observe: Fever of 101 or Higher, Coldness, Increased Pain and Numbness or Tingling Change Dressing in: leave in place till F/U Cleanse incision/area with: Do not get Incision Wet Follow Up Care Please Follow Up With: Bradford Hogue MD When: within 2 weeks Test Results: Test results from this visit will be discussed in further detail at your follow-up appointment, if applicable. Discharge Plan Admission Attending Provider: Bradford Hogue Primary Care Provider: Care Physician,No Primary Instructions Print Language: Macedonian Discharge Orders/Prescriptions Prescriptions: New oxycodone-acetaminophen [Endocet] 5-325 mg tablet 1 tab PO Q4H MDD 6 PRN (Reason: pain) 5 Days Qty: 20 0RF No Action glucosamine sulfate [Glucosamine] 500 mg tablet 500 mg PO QDAY Rx Instructions: administer with a meal Adult 50 Plus Probiotic 4 billion cell capsule 4,000 mmu cells PO QDAY Rx Instructions: administer with a meal Referrals / Follow Up: Bradford Hogue MD [Med Staff - Active Staff] - Care Physician,No Primary [Primary Care Provider] - Disposition Disposition (needs filled in before D/C Order can be placed): Home, Self Care 04/26/251310<Electronically signed by Bradford Hogue MD>Bradford Hogue MD CC: No Primary Care Physician ~ Signed [facility] Work Phone: [phone]) 482-780507-31-2025 Consult note Author Dwayne Watts [facility] Note Date/Time April 26, 2025 1:10 pm [facility] Medical Records Department [address] [place] [address] Anesthesia Postop Eval I 04/26/251309 MR#: [id number] Acct: [id number] Name: STARR GUZMAN Rep #:[id number] : 1960 65 From: Dwayne Watts CRNA PCP: Care Physician,No Primary Status :[facility] Y Race: C Location: [place] [address] Anesthesia: Postop Eval I Current Vital Signs Temperature: 97 F Pulse Rate: 63 Blood Pressure: 147/83 Respiratory Rate: 12 Pulse Ox: 93 Oxygen Delivery Method: Nasal Cannula Oxygen Flow Rate (L/min): 2 Assessment Airway patent: Yes Spontaneous unlabored respirations: Yes Mental status: Awake and Calm nausea: No Vomiting: No Anesthesia Complication: No Fluid Hydration Crystalloid volume administer (ml): 900 Total IV fluid infused: 900 Progress Note Anesthesia document: Postop Eval 1 completed: Yes 04/26/251309 <Electronically signed by Dwayne barrios CRNA> Date _ Dwayne Wilder Signature: Date CC: ~ Signed [facility] Work Phone: 1(245) 512-216907-31-2025 Consult note [facility] Medical Records Department [address] [place] [address] Anesthesia Postop Eval II 04/26/25 1442 MR#: [id number] Acct: [id number] Name: STARR GUZMAN Rep #:[id number] : 1960 65 From: Guru Vo PCP: Care Physician,No Primary Status :[facility] Y Race: C Location: [place] [address] Anesthesia Postop Eval I Sum Postop Eval Completion status Anesthesia document: Postop Eval 1 completed: Yes Anesthesia Postop Eval I Summary Anesthesia Postop Eval I Summary: Anesthesia Postop Eval I: Assessment Summary Airway patent Yes 04/26/25 13:10 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 Spontaneous unlabored Yes 04/26/25 13:10 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 respirations Mental status Awake,Calm 04/26/25 13:10 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 nausea No 04/26/25 13:10 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 Vomiting No 04/26/25 13:10 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 Anesthesia Postop Eval I: Fluid Summary Crystalloid volume administer 900 04/26/25 13:10 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 (ml) Colloids volume administered ( ml) Blood Product volume administered (ml) Total IV fluid infused 900 04/26/25 13:10 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 Anesthesia Postop Eval I: Summary Notes Anesthesia Complication No 04/26/25 13:10 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 04/26/25 1442 MD> Date _ Guru Willis MD [facility] Signature: Date CC: ~ Signed [facility]07-31-2025 History and physical note Author Bradford Hogue [facility] Note Date/Time April 26, 2025 11:4 1am [facility] Medical Records Department [address] [place] [address] History & Physical Exam 04/26/25 1140 MR#: [id number] Acct: [id number] Name: STARR GUZMAN Rep #:[id number] : 1960 65 From: Bradford Hogue MD PCP: Care Physician,No Primary Status :[facility] Location: [place] [address] HPI - General HPI Narrative STARR GUZMAN, is a 65 F who presents for right olecranon open reduction internal fixation, radial head fragment excision and possible radial head arthroplasty. No changes to history and physical exam. Risks alternatives benefits discussed as well as postoperative instructions and narcotic counseling. The patient understands right upper extremity marked okay to proceed with surgery they understood no further questions or concerns. MR#: [id number] Acct: [id number] Name: STARR GUZMAN Rep #: [id number] : 1960 Provider: Dr. Bradford Hogue MD Age/Sex: 64/F Location: [facility] Status: Signed Intake Vital Signs 04/20/2508:36 Height 5 ft 3 in Weight: 178 lb BMI 31.5 BP 130/84 H Position Sitting Pulse 77 Temp 98.3 F Temp Source Oral Pulse Oximetry (%) 97 Oxygen Delivery Method room air Intake Visit Reasons: RIGHT ELBOW Chief Complaint: Elbow Pain Is patient in pain?: No Allergies No Known Allergies Allergy (Verified 04/23/25 08:09) Medications ?Medication ?Instructions ?Recorded ?Confirmed ?Type glucosamine sulfate 500 mg tablet 500 mg PO QDAY 04/20/25 04/23/25 History (Glucosamine) lactobacillus combination no.9 4 4,000 mmu cells PO QDAY 04/20/25 5 History billion cell capsule (Adult 50 Plus Probiotic) [facility] Medical History Fracture of right olecranon process Surgical History Hx of section History of appendectomy HPI RIGHT ELBOW Details: This documentation accurately reflects the service provided and the decisions made by me, Dr. Bradford Hogue MD 04/23/25 0808. Part of today?s visit was documented by [ ], acting as scribe. STARR GUZMAN is a 64 year old F here today for R olecranon fracture. 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 per referral 64 F who presents to the office today for initial evaluation of right elbow pain. Patient states that 5 days ago she fell hitting her right elbow and wrist. She has had significant pain particularly to the elbow since then. Patient denies numbness, tingling or loss of range of motion however states that range of motion of the elbow causes worse pain. No previous injuries to the same. No other associated symptoms or alleviating/aggravating factors. Supplemental Info [facility] Imaging Services [address] [place] [address] Extremity Upper without Contra MR#: [id number] Acct: [id number] Name: STARR GUZMAN Rep #: [id number] : 1960 F 64 From: Anton Chavez DO PCP: Care Physician,No Primary Status: [facility] CLI Study: Extremity Upper without Contra Date of Exam: 04/20/25 Exam# [id number] Ordering Dr: Bradford Hogue MD PROCEDURE: EXTREMITY UPPER WITHOUT CONTRA 04/20/2025 REASON FOR EXAM: R OLECRANON FRACTURE TECHNIQUE: EXTREMITY UPPER WITHOUT CONTRA Coronal and Sagittal reconstruction series were provided. One or more dose reduction techniques were used (e.g., Automated exposure control, adjustment of the mA and/or kV according to patient size, use of iterative reconstruction technique. RADIATION DOSE SUMMARY: CTDlvol: 27.53 mGy DLP: 569.69 mGycm COMPARISON: None FINDINGS: Bones: Comminuted fracture of the proximal ulna at the base of the olecranon. The trochlea appears intact. Tiny fracture fragment is seen adjacent to the radial head. Capitellum in distal humerus intact otherwise. Joints: No dislocation Soft Tissues: Mild soft tissue hematoma at the fracture site. CT/Extremity Upper without Contra IMPRESSION: Fractures of the proximal ulna at the base of the olecranon with 2 or more fracture fragments. fracture of the radial head Reading Location: [facility] May be a radial head fracture, under 30 percent of joint surface. I independently reviewed the imaging. Concur with radiologist report. Coding Level of Care Code Off vis,new,level 4 Diagnoses Closed comminuted fracture of proximal end of right ulna S52.091A Closed comminuted fracture of proximal end of right radius S52.181A Assessment and Plan Assessment and Plan (1) Closed comminuted fracture of proximal end of right ulna: Status: Acute Plan: 64-year-old female with a proximal ulna olecranon fracture. There also appears to be radial head fracture under 30% of the surface of the radial head multiple small comminuted fragments. After reviewing the x-rays the patient's functionaldemand and on the dominant arm overall my recommendation would be more toward surgical management of this the other option would be nonsurgical management ...but with the latter more high rates of stiffness due to prolonged immobilization and potential displacement of the fracture as well as chance of leaving the intra-articular fragments in the joint and causing long-term problems such as osteoarthritis. That being said surgery has its own set of risks like hardware irritation infection neurovascular injuries or other problems. Patient understands wishes to go ahead with right olecranon open reduction internal fixation, radial head fragment excision and possible radial head arthroplasty. We will try to get this done week she understands no furtherconcerns. Pros and cons risks and benefits were discussed with the patient including but not limited to infection, pain, stiffness, bleeding, damage to surrounding structures, neurovascular injury, recurrence or retear, failure or wear of hardware or fixation, instability, fracture, deep vein thrombosis and pulmonary embolism, anesthetic risks, , patient dissatisfaction, need for further surgery and other risks. Patient understood and wished to proceed with surgery,and signed the informed consent documentation. (2) Closed comminuted fracture of proximal end of right radius: Status: Acute Ortho Exam General General: Yes no acute distress Neurologic: Yes alert and Yes oriented x3 Psychologic: Yes reasonable and appropriate Right Elbow Skin/Wound: Yes CDI, No eccymosis, No erythema and Yes Swelling Sensation: Radial: I, Ulnar: I and Median: I Motor: EPL: 5, FDP-2: 5 and 1st Dorsal Interosseous: 5 ELBOW: nvi, strong radial pulse, hand a bit swollen, no pain hand or shoulder. [facility] Medical History Fracture of right olecranon process Home Medications ?Medication ?Instructions ?Recorded ?Last Taken ?Type glucosamine sulfate 500 mg tablet 500 mg PO QDAY 04/2004/25/25 History (Glucosamine) lactobacillus combination no.9 4 4,000 mmu cells PO QD AY 04/20/25 04/25/25 History billion cell capsule (Adult 50 Plus Probiotic) Allergy/AdvReac Type Severity Reaction Status Date / Time No Known Allergies Allergy Verified 04/26/25 10:35 Surgical History Hx of section History of appendectomy Vital Signs Vital Signs Vital Signs: 04/26/25 10:43 04/26/25 10:43 04/26/25 11:18 Temperature 97.6 F L 97.6 F L Temperature Source Temporal Pulse Rate 70 70 Respiratory Rate 16 16 Respiratory Pattern Normal Blood Pressure 165/92 H 165/92 H Blood Pressure Mean 116 Blood Pressure Source Monitor Blood Pressure Position Sitting Blood Pressure Location Right Arm Pulse Ox 97 97 Oxygen Delivery Method Room Air Room Air Weight Weight: 178 lb 2.136 oz Body Mass Index (BMI) 31.5 04/26/25 1141 <Electronically signed by Bradford Hogue MD> Cosigner Signature (if applicable): CC: Dr. Bradford Hogue MD; No Primary Care Physician~ Signed [facility] Work Phone: 1(985) 735-734707-31-2025 Consult note Author Guru Willis [facility] Note Date/Time April 26, 2025 11:2 2am [facility] Medical Records Department [address] [place] [address] Pre-Anesthesia Evaluation 04/26/25 1112 MR#: [id number] Acct: [id number] Name: STARR GUZMAN Rep #:[id number] : 1960 65 From: Guru Vo PCP: Care Physician,No Primary Status :[facility] Y Race: C Location: [place] [address] ASA Classification* ASA Classification ASA Classification: 1 Assessment & Plan Anesthesia* Anesthesia Assessment Anesthesia Assessment: Discussed sedation and/or anesthesia options, risks, benefits, and alternatives with patient/parents/legal guardian/POA. Questions invited. The patient/parents/legal guardian/POA seems to understand and agrees to proceedwith anesthesia plan. Reviewed the physical assessment, medical history, allergy history and patient home medications list prior to surgery/procedure/anesthetic and documented any changes. Performed airway and anesthesia risk assessments. Anesthesia Type Anesthesia Type: General and Block History Source History Obtained from:: Patient and Chart Anesthesia Focused Assessment* Temperature: 97.6 F Pulse Rate: 70 Blood Pressure: 165/92 Respiratory Rate: 16 Pulse Ox: 97 Oxygen Delivery Method: Room Air Airway Assessment Mouth opens: >3 cm Mallampati Score: I Teeth Condition: Intact and Missing Neck Range of motion (ROM): Full ROM Labs Anesthesia Preop lab: CBC WBC 4.3 K/mm3 (4.4-11.0) L 06/13/12 10:00 06/13/12 RBC 3.97 M/mm3 (4.2-5.4) L 06/13/12 10:00 06/13/12 Hgb 11.8 g.dL (12.0-15.0) L 06/13/12 10:00 06/13/12 Hct 35.4 % (37-47) L 06/13/12 10:00 06/13/12 Plt Count 196 K/mm3 (150-450) 06/13/12 10:00 06/13/12 CHEMISTRY Potassium 3.8 mmol/L (3.5-5.1) 06/13/12 10:00 06/13/12 Sodium 140 mmol/L (136-145) 06/13/12 10:00 06/13/12 Magnesium 2.1 mg/dL (1.8-2.4) 06/13/12 10:00 06/13/12 Phosphorus 2.8 mg/dL (2.5-4.9) 06/13/12 10:00 06/13/12 BUN 9 mg/dL (7-18) 06/13/12 10:00 06/13/12 Creatinine 0.5 mg/dL (0.6-1.0) L 06/13/12 10:00 06/13/12 Glucose 84 mg/dL (70-110) 06/13/12 10:00 06/13/12 COAG Pre-Assessment Diagnosis/Proposed Procedure Planned Operative Procedure(s): Right olecranon open reduction internal fixation, possible radial head arthroplasty Anesthesia History 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 When Was Last Pacemaker Check QUESTION #4 FULL TEXT: You/Your Family Experience fever (hyperthermia) with Anesthesia Last Oral Intake Last Oral intake: Last Oral Intake NPO since 20:00 04/26/25 10:43 Meds taken in AM with sips of No 04/26/25 10:43 water? 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 set up operator: PONV - tool honing machine set up operator Female HX of Motion Sickness HX of N/V After Surgery Non-Smoker Duration of Surgery greater than 60 minutes Number of Risk Factors PONV Score Height & Weight Height & Weight: Anesthesia: Height & Weight Height 5 ft 3 in 04/26/25 10:43 Weight: 80.8 kg 04/26/25 10:43 Body Mass Index (BMI) 31.5 04/26/25 10:43 Respiratory Assessment Respiratory Assessment - tool honing machine set up operator: Respiratory Tract Infection Hx - tool honing machine set up operator Hx Respiratory Tract Infection STOP Sleep Apnea STOP Sleep Apnea - tool honing machine set up operator: STOP Sleep Apnea - tool honing machine set up operator Hx Hypertension Hx Sleep Apnea CPAP BIPAP Do you snore loudly (louder than talking or can be heard Do you often feel tired/ fatigued/ sleepy during daytime? Has anyone observed you stop breathing during sleep? STOP Results QUESTION #5 FULL TEXT : Do you snore loudly (louder than talking or can be heard through closed doors)? Tobacco Use History Tobacco Use History - tool honing machine set up operator: Tobacco Use History - tool honing machine set up operator Tobacco Use Smoking Status Hx Tobacco Use Years Smoking Packs Smoked per Day Smoking Cessation Date was within the last 15 years Hx Smoking Cessation Date Hx Smoking Cessation Counseling Hematologic Medial History Hematologic Hx - tool honing machine set up operator: Hematologic Medical Hx - pulmonary function technician Hx of Blood Transfusion Hx of Transfusion in last 3 Months Date of Last Transfusion (if within last 3 months) Ever experience any problems with transfusion(s)? Specify any problems Hx of Preganancy in last 3 Months Nurse Filling Out Transfusion & Questions: Date: Time: Patient unable to answer at this time (ie. confused, unrespo /Reproduction History /Reproductive History - tool honing machine set up operator: /Reproductive Hx- tool honing machine set up operator Hx Now Gestational Age (in weeks): EDC: Hx Hx Para Hx Section SAB Active Medications Active Medications: Current Medications Generic Name Dose Route Start Last Admin Trade Name Freq PRN Reason Stop Dose Admin Cefazolin Sodium 2 gm/ Sodium 110 mls @ 200 mls/hr 04/26/25 12:00 Chloride IV 04/26/25 12:32 INTRAOP ONE Lactated Ringer's 1,000 mls @ 15 mls/hr 04/26/25 10:30 04/26/25 10:49 IV 15 mls/hr .Q48H KIRA Administration PFSH Medical History Fracture of right olecranon process Home Medications ?Medication ?Instructions ?Recorded ?Last Taken ?Type glucosamine sulfate 500 mg tablet 500 mg PO QDAY 04/2004/25/25 History (Glucosamine) lactobacillus combination no.9 4 4,000 mmu cells PO QD AY 04/20/25 04/25/25 History billion cell capsule (Adult 50 Plus Probiotic) Allergy/AdvReac Type Severity Reaction Status Date / Time No Known Allergies Allergy Verified 04/26/25 10:35 Surgical History Hx of section History of appendectomy Review of Systems (Anesthesia) ROS Narrative System reviewed and no additional complaints, except as documented. 04/26/25 1122 <Electronically signed by Guru Willis MD> Date _ Guru Willis MD Cosigner Signature: Date CC: ~ Signed [facility] Work Phone: [phone]) 910-802307-31-2025 Discharge summary [facility] Medical Records Department [address] [place] [address] Instructions for Home/Discharge Instructions 04/26/25 1308 MR#: [id number] Acct: [id number] Name: STARR GUZMAN Rep #:[id number] : 1960 65 From: Bradford Hogue MD PCP: Care Physician,No Primary Status :[facility] Discharge Instructions Diet Discharge Diet: No restrictions Activity Discharge Activity: Return to Normal Activity Ice area for (Minutes): 10 Lifting Restrictions: keep arm in sling and splint until FU Additional Activity Instructions:: ok for finger movement Dressing / Incision Call your doctor if your incision/area has: Continuous Slow Oozing, Sudden Increased Bleeding, Increased Pain/ Swelling, Increased Redness, Foul Smelling Discharge and Swelling at the incision site Call your doctor if you observe: Fever of 101 or Higher, Coldness, Increased Pain and Numbness or Tingling Change Dressing in: leave in place till F/U Cleanse incision/area with: Do not get Incision Wet Follow Up Care Please Follow Up With: Bradford Hogue MD When: within 2 weeks Test Results: Test results from this visit will be discussed in further detail at your follow- up appointment, if applicable. Discharge Plan Admission Attending Provider: Bradford Hogue Primary Care Provider: Care Physician,No Primary Instructions Print Language: Macedonian Discharge Orders/Prescriptions Prescriptions: New oxycodone-acetaminophen [Endocet] 5-325 mg tablet 1 tab PO Q4H MDD 6 PRN (Reason: pain) 5 Days Qty: 20 0RF No Action glucosamine sulfate [Glucosamine] 500 mg tablet 500 mg PO QDAY Rx Instructions: administer with a meal Adult 50 Plus Probiotic 4 billion cell capsule 4,000 mmu cells PO QDAY Rx Instructions: administer with a meal Referrals / Follow Up: Bradford Hogue MD [Med Staff - Active Staff] - Care Physician,No Primary [Primary Care Provider] - Disposition Disposition (needs filled in before D/C Order can be placed): Home, Self Care 04/26/25 1311Sopal Hogue MD CC: No Primary Care Physician ~ Signed [facility]07-31-2025 Consult note [facility] Medical Records Department [address] [facility] [place] [address] Anesthesia Postop Eval I 04/26/25 1310 MR#: [id number] Acct: [id number] Name: STARR GUZMAN Rep #:[id number] : 1960 65 From: Dwayne Watts CRNA PCP: Care Physician,No Primary Status :[facility] Y Race: C Location: [place] [address] Anesthesia: Postop Eval I Current Vital Signs Temperature: 97 F Pulse Rate: 63 Blood Pressure: 147/83 Respiratory Rate: 12 Pulse Ox: 93 Oxygen Delivery Method: Nasal Cannula Oxygen Flow Rate (L/min): 2 Assessment Airway patent: Yes Spontaneous unlabored respirations: Yes Mental status: Awake and Calm nausea: No Vomiting: No Anesthesia Complication: No Fluid Hydration Crystalloid volume administer (ml): 900 Total IV fluid infused: 900 Progress Note Anesthesia document: Postop Eval 1 completed: Yes 04/26/25 1310 y 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 MUSIC> Date _ Dwayne Watts CRNA Cosigner Signature: Date CC: ~ Signed [facility]07-31-2025 Procedure note [facility] Medical Records Department [address] [place] [address] Operative Report 04/26/25 1258 MR#: [id number] Acct: [id number] Name: STARR GUZMAN Rep #:[id number] : 1960 65 From: Bradford Hogue MD PCP: Care Physician,No Primary Status :[facility] Location: [place] [address] Problems Associated Problem List Diagnoses (1) Closed comminuted fracture of proximal end of right radius: (2) Closed comminuted fracture of proximal end of right ulna: (3) Fracture of right olecranon process: Procedures Musculoskeletal [id number]: Other Procedure See Report Operative Report (Standard) Operative Information Date of Procedure: 04/26/25 Pre-Operative Diagnosis: R proximal ulna fracture and proximal radial fracture Post-Operative Diagnosis: R proximal ulna fracture and proximal radial fracture Surgery/Procedure Performed: R proximal ulnar ORIF, excision radial head fragment, non op mgt radial head fracture steamfitter: Yes Reagent Tender Helper: henrique Tasks completed by first beater: Retracting Additional pharmacist assistant?: No Type of Anesthesia: General and Local RN Documented Start/Stop Times: Operation Date: 04/26/25 12:00 Case Time Into Pre-Op 04/26/25 10:16 Out of Pre-Op 04/26/25 11:46 Anesthesia Start 04/26/25 11:47 Into Room 04/26/25 11:47 Procedure Start 04/26/25 12:06 Procedure End 04/26/25 12:56 Procedure Start Time: 12:06 Procedure Stop Time: 12:56 Select all DRAINS/GRAFTS/IMPLANTS that apply: Implanted device Implanted device details: arthex olecranon pre contoured plate long Estimated Blood Loss: 20 Specimen collected: No Description of surgery: Patient brought to the operating room theater. Placed supine on the table. General anesthesia induced. 2 g IV Ancef administered prior to the start of theprocedure. Bed turned to 90 degrees. Hand table to the patient's right side. Tourniquet applied right upper extremity appropriately padded. All bony prominences padded. SCDs on the legs. Upper extremity prepped and draped in the usual sterile fashion with chlorhexidine-based prep solution allowing over 3minutes drying time prior to draping. Preoperative timeout performed to confirmthe site patient and the surgery. Began by elevating the limb inflating the tourniquet to 250 mmHg. Made a standard posterior incision at the proximal subcutaneous border of the ulna curved laterally around the olecranon tip. Carriedthe dissection down through skin and subcutaneous tissue achieved meticulous hemostasis. Incised the interval between the FCU and the ECU. Dissected down to the subcutaneous borderof the proximal ulna identified the fracture site cleared away any interposed hematoma and fracture periosteum. Worked through the lateral comminution aspectof the ulnar fracture to the radiocapitellar joint thoroughly irrigated the joint and removed any intra-articular fragments. The radial head appeared to beintact with good cartilage surface with very small fracture fragments with a stable radial capitellar joint. I achieved a preliminary reduction. I did this in extension of the elbow. I made a small 2.5 mm drill hole distal to the fracture site then used a pointed reduction forcep clamp across that to thoroughly compress at the fracture site this achieved good anatomic reduction. I then selected the [employer] proximal ulna precontoured long plate. I placed this on the bone. I made a split in thetriceps proximally to try to get the plate as onto the bone as possible proximally. I then secured this with a top hat device as well as drilling a 3.5mm fully threaded cortical screw distal to the fracture sitethrough the oblong hole in the plate. I ensured the plate was appropriately placed on the subcutaneous border of the ulna growth with AP and lateral radiographs. I then inserted 3 more fully threadedcortical screws which achieved quite good purchase distal to the fracture site. I then also placed the 2.7 millimeter screws proximally in a locking screw fashion that were all extra-articular 2 thatwere rafting screws and 6 screws total. Final radiographs were taken. Full range of motion no crepitus full flexion andextension no blocks to extension full pronation and supination with the elbow stable to varus and valgus stresses. Finalradiographs taken and [facility]. Wound thoroughly irrigated. Tourniquet let down meticulous hemostasis achieved. Subcutaneous tissue closed with 2-0 Vicryl suture and skin with 3-0 Monocryl. Skin cleaned with wet and dry dressing. 10 cc of quarter percent bupivacaine instilled in and around the soft tissues. Skin cleaned with wet anddry dressing followed application of Steri-Strips Adaptic 4 x 4 gauze ABD dressing posterior prefabricated fiberglass splint with the elbow at 90 degrees of flexion gently overwrapped with Andriy bandage and placed into an upper extremity sling. Patient woken up from general anesthetic transferred off the operating room table taken to postanesthetic care unit in stable condition. All sponge needle instrument counts were correct no complications plan to the patient discharged home according to day surgery criteria and follow-up in the office within 2 weeks [place]. cpt 44548, [id number], [id number] Surgical Findings: as above Complications Complications: No Admit VTE Documentation VTE Present on Admission: No VTE Mechan Device Prophylaxis: SCD's VTE Pharm Prophylaxis ordered?: No Reason prophylaxis not ordered: Treatment Not Indicated 04/26/25 1307 Cosigner Signature (if applicable): CC: Dr. Bradford Hogue MD; No Primary Care Physician~ Signed [facility]07-31-2025 History and physical note [facility] Medical Records Department [address] [place] [address] History & Physical Exam 04/26/25 1140 MR#: [id number] Acct: [id number] Name: STARR GUZMAN Rep #:[id number] : 1960 65 From: Bradford Hogue MD PCP: Care Physician,No Primary Status :[facility] Location: [address] - General HPI Narrative STARR GUZMAN, is a 65 F who presents for right olecranon open reduction internal fixation, radial head fragment excision and possible radial head arthroplasty. No changes to history and physical exam.Risks alternatives benefits discussed as well as postoperative instructions and narcotic counseling. The patient understands right upper extremity marked okay to proceed with surgery they understood no further questions or concerns. MR#: [id number] Acct: [id number] Name: STARR GUZMAN Rep #: [id number] : 1960 Provider: Dr. Bradford Hogue MD Age/Sex: 64/F Location[place] [facility] [place] Status: Signed Intake Vital Signs 04/20/2508:36 Height 5 ft 3 in Weight: 178 lb BMI 31.5 BP 130/84 H Position Sitting Pulse 77 Temp 98.3 F Temp Source Oral Pulse Oximetry (%) 97 Oxygen Delivery Method room air Intake Visit Reasons: RIGHT ELBOW Chief Complaint: Elbow Pain Is patient in pain?: No Allergies No Known Allergies Allergy (Verified 04/23/25 08:09) Medications ?Medication ?Instructions ?Recorded ?Confirmed ?Type glucosamine sulfate 500 mg tablet 500 mg PO QDAY 04/20/25 04/23/25 History (Glucosamine) lactobacillus combination no.9 4 4,000 mmu cells PO QDAY 04/20/25 5 History billion cell capsule (Adult 50 Plus Probiotic) [facility] Medical History Fracture of right olecranon process Surgical History Hx of section History of appendectomy HPI RIGHT ELBOW Details: This documentation accurately reflects the service provided and the decisions made by me, Dr. Gunnar MD 04/23/25 0808. Part of today?s visit was documented by [ ], acting as scribe. STARR UGZMAN is a 64 year old F here today for R olecranon fracture. 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 per referral 64 F who presents to the office today for initial evaluation of right elbow pain. Patient states that 5 days ago she fell hitting her right elbow and wrist. She has had significant painparticularly to the elbow since then. Patient denies numbness, tingling or loss of range of motion however states that range of motion of the elbow causes worse pain. No previous injuries to the same. No other associated symptoms or alleviating/aggravating factors. Supplemental Info [facility] Services [address] [place], [place] [id number] Extremity Upper without Contra MR#: [id number] Acct: [id number] Name: STARR GUZMAN Rep #: [id number] : 1960 F 64 From: Anton Chavez DO PCP: Care Physician,No Primary Status: REG CLI Study: Extremity Upper without Contra Date of Exam: 04/20/25 Exam# [id number] Ordering Dr: Bradford Hogue MD PROCEDURE: EXTREMITY UPPER WITHOUT CONTRA 04/20/2025 REASON FOR EXAM: R OLECRANON FRACTURE TECHNIQUE: EXTREMITY UPPER WITHOUT CONTRA Coronal and Sagittal reconstruction series were provided. One or more dose reduction techniques were used (e.g., Automated exposure control, adjustment of the mA and/or kV according to patient size, use of iterative reconstruction technique. RADIATION DOSE SUMMARY: CTDlvol: 27.53 mGy DLP: 569.69 mGycm COMPARISON: None FINDINGS: Bones: Comminuted fracture of the proximal ulna at the base of the olecranon. The trochlea appears intact. Tiny fracture fragment is seen adjacent to the radial head. Capitellum in distal humerus intact otherwise. Joints: No dislocation Soft Tissues: Mild soft tissue hematoma at the fracture site. CT/Extremity Upper without Contra IMPRESSION: Fractures of the proximal ulna at the base of the olecranon with 2 or more fracture fragments. fracture of the radial head Reading Location: [facility] May be a radial head fracture, under 30 percent of joint surface. I independently reviewed the imaging. Concur with radiologist report. Coding Level of Care Code Off vis,new,level 4 Diagnoses Closed comminuted fracture of proximal end of right ulna S52.091A Closed comminuted fracture of proximal end of right radius S52.181A Assessment and Plan Assessment and Plan (1) Closed comminuted fracture of proximal end of right ulna: Status: Acute Plan: 64-year-old female with a proximal ulna olecranon fracture. There also appears to be radial head fracture under 30% of the surface of the radial head multiple small comminuted fragments. After reviewing the x-rays the patient's functionaldemand and on the dominant arm overall my recommendation would be more toward surgical management of this the other option would be nonsurgical management ...but with the latter more high rates of stiffness due to prolonged immobilization and potential displacement of the fracture as well as chance of leaving the intra-articular fragmentsin the joint and causing long-term problems such as osteoarthritis. That being said surgery has itsown set of risks like hardware irritation infection neurovascular injuries or other problems. Patient understands wishes to go ahead with right olecranon open reduction internal fixation, radial headfragment excision and possible radial head arthroplasty. We will try to get this done week she understands no furtherconcerns. Pros and cons risks and benefits were discussed with the patient including but not limited to infection, pain, stiffness, bleeding, damage to surrounding structures, neurovascular injury, recurrence or retear, failure or wear of hardware or fixation, instability, fracture, deepvein thrombosis and pulmonary embolism, anesthetic risks, , patient dissatisfaction, need for further surgery and other risks. Patient understood and wished to proceed with surgery,and signed the informed consent documentation. (2) Closed comminuted fracture of proximal end of right radius: Status: Acute Ortho Exam General General: Yes no acute distress Neurologic: Yes alert and Yes oriented x3 Psychologic: Yes reasonable and appropriate Right Elbow Skin/Wound: Yes CDI, No eccymosis, No erythema and Yes Swelling Sensation: Radial: I, Ulnar: I and Median: I Motor: EPL: 5, FDP-2: 5 and 1st Dorsal Interosseous: 5 ELBOW: nvi, strong radial pulse, hand a bit swollen, no pain hand or shoulder. [facility] Medical History Fracture of right olecranon process Home Medications ?Medication ?Instructions ?Recorded ?Last Taken ?Type glucosamine sulfate 500 mg tablet 500 mg PO QDAY 04/2004/25/25 History (Glucosamine) lactobacillus combination no.9 4 4,000 mmu cells PO QD AY 04/20/25 04/25/25 History billion cell capsule (Adult 50 Plus Probiotic) Allergy/AdvReac Type Severity Reaction Status Date / Time No Known Allergies Allergy Verified 04/26/25 10:35 Surgical History Hx of section History of appendectomy Vital Signs Vital Signs Vital Signs: 04/26/25 10:43 04/26/25 10:43 04/26/25 11:18 Temperature 97.6 F L 97.6 F L Temperature Source Temporal Pulse Rate 70 70 Respiratory Rate 16 16 Respiratory Pattern Normal Blood Pressure 165/92 H 165/92 H Blood Pressure Mean 116 Blood Pressure Source Monitor Blood Pressure Position Sitting Blood Pressure Location Right Arm Pulse Ox 97 97 Oxygen Delivery Method Room Air Room Air Weight Weight: 178 lb 2.136 oz Body Mass Index (BMI) 31.5 04/26/25 1141 Cosigner Signature (if applicable): CC: Dr. Bradford Hogue MD; No Primary Care Physician~ Signed [facility]07-31-2025 Consult note [facility] Medical Records Department [address] [place] [address] Pre-Anesthesia Evaluation 04/26/25 1112 MR#: [id number] Acct: [id number] Name: STARR GUZMAN Rep #:[id number] : 1960 65 From: Guru Vo PCP: Care Physician,No Primary Status :REG SDC Y Race: C Location: [place] [address] ASA Classification* ASA Classification ASA Classification: 1 Assessment & Plan Anesthesia* Anesthesia Assessment Anesthesia Assessment: Discussed sedation and/or anesthesia options, risks, benefits, and alternatives with patient/parents/legal guardian/POA. Questions invited. The patient/parents/legal guardian/POA seems to understand and agrees to proceedwith anesthesia plan. Reviewed the physical assessment, medical history, allergy history and patient home medications list prior to surgery/procedure/anesthetic and documented any changes. Performed airway and anesthesia risk assessments. Anesthesia Type Anesthesia Type: General and Block History Source History Obtained from:: Patient and Chart Anesthesia Focused Assessment* Temperature: 97.6 F Pulse Rate: 70 Blood Pressure: 165/92 Respiratory Rate: 16 Pulse Ox: 97 Oxygen Delivery Method: Room Air Airway Assessment Mouth opens: >3 cm Mallampati Score: I Teeth Condition: Intact and Missing Neck Range of motion (ROM): Full ROM Labs Anesthesia Preop lab: CBC WBC 4.3 K/mm3 (4.4-11.0) L 06/13/12 10:00 06/13/12 RBC 3.97 M/mm3 (4.2-5.4) L 06/13/12 10:00 06/13/12 Hgb 11.8 g.dL (12.0-15.0) L 06/13/12 10:06/13/12 Hct 35.4 % (37-47) L 06/13/12 10:06/13/12 Plt Count 196 K/mm3 (150-450) 06/13/12 10:00 06/13/12 CHEMISTRY Potassium 3.8 mmol/L (3.5-5.1) 06/13/12 10:00 06/13/12 Sodium 140 mmol/L (136-145) 06/13/12 10:00 06/13/12 Magnesium 2.1 mg/dL (1.8-2.4) 06/13/12 10:00 06/13/12 Phosphorus 2.8 mg/dL (2.5-4.9) 06/13/12 10:00 06/13/12 BUN 9 mg/dL (7-18) 06/13/12 10:00 06/13/12 Creatinine 0.5 mg/dL (0.6-1.0) L 06/13/12 10:00 06/13/12 Glucose 84 mg/dL (70-110) 06/13/12 10:00 06/13/12 COAG Pre-Assessment Diagnosis/Proposed Procedure Planned Operative Procedure(s): Right olecranon open reduction internal fixation, possible radial head arthroplasty Anesthesia History 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 When Was Last Pacemaker Check QUESTION #4 FULL TEXT: You/Your Family Experience fever (hyperthermia) with Anesthesia Last Oral Intake Last Oral intake: Last Oral Intake NPO since 20:00 04/26/25 10:43 Meds taken in AM with sips of No 04/26/25 10:43 water? 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 set up operator: PONV - tool honing machine set up operator Female HX of Motion Sickness HX of N/V After Surgery Non-Smoker Duration of Surgery greater than 60 minutes Number of Risk Factors PONV Score Height & Weight Height & Weight: Anesthesia: Height & Weight Height 5 ft 3 in 04/26/25 10:43 Weight: 80.8 kg 04/26/25 10:43 Body Mass Index (BMI) 31.5 04/26/25 10:43 Respiratory Assessment Respiratory Assessment - tool honing machine set up operator: Respiratory Tract Infection Hx - tool honing machine set up operator Hx Respiratory Tract Infection STOP Sleep Apnea STOP Sleep Apnea - tool honing machine set up operator: STOP Sleep Apnea - tool honing machine set up operator Hx Hypertension Hx Sleep Apnea CPAP BIPAP Do you snore loudly (louder than talking or can be heard Do you often feel tired/ fatigued/ sleepy during daytime? Has anyone observed you stop breathing during sleep? STOP Results QUESTION #5 FULL TEXT : Do you snore loudly (louder than talking or can be heard through closeddoors)? Tobacco Use History Tobacco Use History - tool honing machine set up operator: Tobacco Use History - tool honing machine set up operator Tobacco Use Smoking Status Hx Tobacco Use Years Smoking Packs Smoked per Day Smoking Cessation Date was within the last 15 years Hx Smoking Cessation Date Hx Smoking Cessation Counseling Hematologic Medial History Hematologic Hx - tool honing machine set up operator: Hematologic Medical Hx - pulmonary function technician Hx of Blood Transfusion Hx of Transfusion in last 3 Months Date of Last Transfusion (if within last 3 months) Ever experience any problems with transfusion(s)? Specify any problems Hx of Preganancy in last 3 Months Nurse Filling Out Transfusion & Questions: Date: Time: Patient unable to answer at this time (ie. confused, unrespo /Reproduction History /Reproductive History - tool honing machine set up operator: /Reproductive Hx- tool honing machine set up operator Hx Now Gestational Age (in weeks): EDC: Hx Hx Para Hx Section SAB Active Medications Active Medications: Current Medications Generic Name Dose Route Start Last Admin Trade Name Freq PRN Reason Stop Dose Admin Cefazolin Sodium 2 gm/ Sodium 110 mls @ 200 mls/hr 04/26/25 12:00 Chloride IV 04/26/25 12:32 INTRAOP ONE Lactated Ringer's 1,000 mls @ 15 mls/hr 04/26/25 10:30 04/26/25 10:49 IV 15 mls/hr .Q48H KIRA Administration PFSH Medical History Fracture of right olecranon process Home Medications ?Medication ?Instructions ?Recorded ?Last Taken ?Type glucosamine sulfate 500 mg tablet 500 mg PO QDAY 04/2004/25/25 History (Glucosamine) lactobacillus combination no.9 4 4,000 mmu cells PO QD AY 04/20/25 04/25/25 History billion cell capsule (Adult 50 Plus Probiotic) Allergy/AdvReac Type Severity Reaction Status Date / Time No Known Allergies Allergy Verified 04/26/25 10:35 Surgical History Hx of section History of appendectomy Review of Systems (Anesthesia) ROS Narrative System reviewed and no additional complaints, except as documented. 04/26/25 1122 MD> Date _ Guru Willis MD [facility] Signature: Date CC: ~ Signed [facility]07-28-2025 Progress [facility] [address] [place] [address] OFFICE VISIT Date of Service: 04/23/25 MR#: [id number] Acct: [id number] Name: STARR GUZMAN Rep #: [id number] : 1960 Provider: Dr. Felipe Hogue MD Age/Sex: 64/F Location: [facility] [place] Status: Signed Intake Vital Signs 04/20/25 08:36 Height 5 ft 3 in Weight: 178 lb BMI 31.5 BP 130/84 H Position Sitting Pulse 77 Temp 98.3 F Temp Source Oral Pulse Oximetry (%) 97 Oxygen Delivery Method room air Intake Visit Reasons: RIGHT ELBOW Chief Complaint: Elbow Pain Is patient in pain?: No Allergies No Known Allergies Allergy (Verified 04/23/25 08:09) Medications ?Medication ?Instructions ?Recorded ?Confirmed ?Type glucosamine sulfate 500 mg tablet 500 mg PO QDAY 04/2004/23/25 History (Glucosamine) lactobacillus combination no.9 4 4,000 mmu cells PO QD AY 04/20/25 04/23/25 History billion cell capsule (Adult 50 Plus Probiotic) PFSH Medical History Fracture of right olecranon process Surgical History Hx of section History of appendectomy HPI RIGHT ELBOW Details: This documentation accurately reflects the service provided and the decisions made by me, Dr. Gunnar MD 04/23/25 0808. Part of today?s visit was documented by [ ], acting as scribe. STARR GUZMAN is a 64 year old F here today for R olecranon fracture. 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 per referral 64 F who presents to the office today for initial evaluation of right elbow pain. Patient states that 5 days ago she fell hitting her right elbow and wrist. She has had significant painparticularly to the elbow since then. Patient denies numbness, tingling or loss of range of motion however states that range of motion of the elbow causes worse pain. No previous injuries to the same. No other associated symptoms or alleviating/aggravating factors. Supplemental Info [facility] [address] [place] [id number] Extremity Upper without Contra MR#: [id number] Acct: [id number] Name: STARR GUZMAN Rep #: [id number] : 1960 F 64 From: Anton Chavez DO PCP: Care Physician,No Primary Status: REG CLI Study: Extremity Upper without Contra Date of Exam: 04/20/25 Exam# [id number] Ordering Dr: Bradford Hogue MD PROCEDURE: EXTREMITY UPPER WITHOUT CONTRA 04/20/2025 REASON FOR EXAM: R OLECRANON FRACTURE TECHNIQUE: EXTREMITY UPPER WITHOUT CONTRA Coronal and Sagittal reconstruction series were provided. One or more dose reduction techniques were used (e.g., Automated exposure control, adjustment of the mA and/or kV according to patient size, use of iterative reconstruction technique. RADIATION DOSE SUMMARY: CTDlvol: 27.53 mGy DLP: 569.69 mGycm COMPARISON: None FINDINGS: Bones: Comminuted fracture of the proximal ulna at the base of the olecranon. The trochlea appears intact. Tiny fracture fragment is seen adjacent to the radial head. Capitellum in distal humerus intact otherwise. Joints: No dislocation Soft Tissues: Mild soft tissue hematoma at the fracture site. CT/Extremity Upper without Contra IMPRESSION: Fractures of the proximal ulna at the base of the olecranon with 2 or more fracture fragments. fracture of the radial head Reading Location: [facility] May be a radial head fracture, under 30 percent of joint surface. I independently reviewed the imaging. Concur with radiologist report. Coding Level of Care Code Off vis,new,level 4 Diagnoses Closed comminuted fracture of proximal end of right ulna S52.091A Closed comminuted fracture of proximal end of right radius S52.181A Assessment and Plan Assessment and Plan (1) Closed comminuted fracture of proximal end of right ulna: Status: Acute Plan: 64-year-old female with a proximal ulna olecranon fracture. There also appears to be radial head fracture under 30% of the surface of the radial head multiple small comminuted fragments. After reviewing the x-rays the patient's functionaldemand and on the dominant arm overall my recommendation would be more toward surgical management of this the other option would be nonsurgical management ...butwith the latter more high rates of stiffness due to prolonged immobilization and potential displacement of the fracture as well as chance of leaving the intra-articular fragments in the joint and causing long-term problems such as osteoarthritis. That being said surgery has its own set of risks like hardware irritation infection neurovascular injuries or other problems. Patient understands wishesto go ahead with right olecranon open reduction internal fixation, radial head fragment excision and possible radial head arthroplasty. We will try to get this done week she understands no furtherconcerns. Pros and cons risks and benefits were discussed with the patient including but not limited to infection, pain, stiffness, bleeding, damage to surrounding structures, neurovascular injury, recurrence or retear, failure or wear of hardware or fixation, instability, fracture, deep vein thrombosis and pulmonary embolism, anesthetic risks, , patient dissatisfaction, need for further surgery and other risks. Patient understood and wished to proceed with surgery,and signed the informed consent documentation. (2) Closed comminuted fracture of proximal end of right radius: Status: Acute Ortho Exam General General: Yes no acute distress Neurologic: Yes alert and Yes oriented x3 Psychologic: Yes reasonable and appropriate Right Elbow Skin/Wound: Yes CDI, No eccymosis, No erythema and Yes Swelling Sensation: Radial: I, Ulnar: I and Median: I Motor: EPL: 5, FDP-2: 5 and 1st Dorsal Interosseous: 5 ELBOW: nvi, strong radial pulse, hand a bit swollen, no pain hand or shoulder. 04/23/25 0829 n MD> Date _ Bradford Hogue MD Cosigner Signature: Date (if applicable) CC: ~ [facility] note Author Bradford Hogue [facility] [place] Date/Time April 23, 2025 8:29 am [facility] [address] [place] [address] OFFICE VISIT Date of Service: 04/23/25 MR#: [id number] Acct: [id number] Name: STARR GUZMAN Rep #: [id number] : 1960 Provider: Dr. Felipe Hogue MD Age/Sex: 64/F Location: [facility] [place] Status: Signed Intake Vital Signs 04/20/25 08:36 Height 5 ft 3 in Weight: 178 lb BMI 31.5 BP 130/84 H Position Sitting Pulse 77 Temp 98.3 F Temp Source Oral Pulse Oximetry (%) 97 Oxygen Delivery Method room air Intake Visit Reasons: RIGHT ELBOW Chief Complaint: Elbow Pain Is patient in pain?: No Allergies No Known Allergies Allergy (Verified 04/23/25 08:09) Medications ?Medication ?Instructions ?Recorded ?Confirmed ?Type glucosamine sulfate 500 mg tablet 500 mg PO QDAY 04/2004/23/25 History (Glucosamine) lactobacillus combination no.9 4 4,000 mmu cells PO QD AY 04/20/25 04/23/25 History billion cell capsule (Adult 50 Plus Probiotic) PFSH Medical History Fracture of right olecranon process Surgical History Hx of section History of appendectomy HPI RIGHT ELBOW Details: This documentation accurately reflects the service provided and the decisions made by me, Dr. Bradford Hogue MD 04/23/25 0808. Part of today?s visit was documented by [ ], acting as scribe. STARR GUZMAN is a 64 year old F here today for R olecranon fracture. 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 per referral 64 F who presents to the office today for initial evaluation of right elbow pain. Patient states that 5 days ago she fell hitting her right elbow and wrist. She has had significant pain particularly to the elbow since then. Patient denies numbness, tingling or loss of range of motion however states that range of motion of the elbow causes worse pain. No previous injuries to the same. No other associated symptoms or alleviating/aggravating factors. Supplemental Info [facility] [address] [place], [place] [id number] Extremity Upper without Contra MR#: [id number] Acct: [id number] Name: STARR GUZMAN Rep #: [id number] : 1960 F 64 From: Anton Chavez DO PCP: Care Physician,No Primary Status: REG CLI Study: Extremity Upper without Contra Date of Exam: 04/20/25 Exam# [id number] Ordering Dr: Bradford Hogue MD PROCEDURE: EXTREMITY UPPER WITHOUT CONTRA 04/20/2025 REASON FOR EXAM: R OLECRANON FRACTURE TECHNIQUE: EXTREMITY UPPER WITHOUT CONTRA Coronal and Sagittal reconstruction series were provided. One or more dose reduction techniques were used (e.g., Automated exposure control, adjustment of the mA and/or kV according to patient size, use of iterative reconstruction technique. RADIATION DOSE SUMMARY: CTDlvol: 27.53 mGy DLP: 569.69 mGycm COMPARISON: None FINDINGS: Bones: Comminuted fracture of the proximal ulna at the base of the olecranon. The trochlea appears intact. Tiny fracture fragment is seen adjacent to the radial head. Capitellum in distal humerus intact otherwise. Joints: No dislocation Soft Tissues: Mild soft tissue hematoma at the fracture site. CT/Extremity Upper without Contra IMPRESSION: Fractures of the proximal ulna at the base of the olecranon with 2 or more fracture fragments. fracture of the radial head Reading Location: [facility] May be a radial head fracture, under 30 percent of joint surface. I independently reviewed the imaging. Concur with radiologist report. Coding Level of Care Code Off vis,new,level 4 Diagnoses Closed comminuted fracture of proximal end of right ulna S52.091A Closed comminuted fracture of proximal end of right radius S52.181A Assessment and Plan Assessment and Plan (1) Closed comminuted fracture of proximal end of right ulna: Status: Acute Plan: 64-year-old female with a proximal ulna olecranon fracture. There also appears to be radial head fracture under 30% of the surface of the radial head multiple small comminuted fragments. After reviewing the x-rays the patient's functionaldemand and on the dominant arm overall my recommendation would be more toward surgical management of this the other option would be nonsurgical management ...but with the latter more high rates of stiffness due to prolonged immobilization and potential displacement of the fracture as well as chance of leaving the intra-articular fragments in the joint and causing long-term problems such as osteoarthritis. That being said surgery has its own set of risks like hardware irritation infection neurovascular injuries or other problems. Patient understands wishes to go ahead with right olecranon open reduction internal fixation, radial head fragment excision and possible radial head arthroplasty. We will try to get this done week she understands no furtherconcerns. Pros and cons risks and benefits were discussed with the patient including but not limited to infection, pain, stiffness, bleeding, damage to surrounding structures, neurovascular injury, recurrence or retear, failure or wear of hardware or fixation, instability, fracture, deep vein thrombosis and pulmonary embolism, anesthetic risks, , patient dissatisfaction, need for further surgery and other risks. Patient understood and wished to proceed with surgery,and signed the informed consent documentation. (2) Closed comminuted fracture of proximal end of right radius: Status: Acute Ortho Exam General General: Yes no acute distress Neurologic: Yes alert and Yes oriented x3 Psychologic: Yes reasonable and appropriate Right Elbow Skin/Wound: Yes CDI, No eccymosis, No erythema and Yes Swelling Sensation: Radial: I, Ulnar: I and Median: I Motor: EPL: 5, FDP-2: 5 and 1st Dorsal Interosseous: 5 ELBOW: nvi, strong radial pulse, hand a bit swollen, no pain hand or shoulder. 04/23/25 0829 <Electronically signed by Bradford morgan MD> Date _ Bradford Hogue MD Cosigner Signature: Date (if applicable) CC: ~ [facility] [employer] Work Phone: 1([phone]) 525-747707-25-2025 Radiology Diagnostic study note [facility] [address] [place] [address] [id number] Extremity Upper without Contra MR#: [id number] Acct: [id number] Name: STARR GUZMAN Rep #: [id number] : 1960 F 64 From: Pet er Peer DO PCP: Care Physician,No Primary Status: REG CLI Study:Extremity Upper without Contra Date of Exam: 04/20/25 Exam# [id number] Ordering Dr: Bradford Hogue MD PROCEDURE: EXTREMITY UPPER WITHOUT CONTRA 04/20/2025 REASON FOR EXAM: R OLECRANON FRACTURE TECHNIQUE: EXTREMITY UPPER WITHOUT CONTRA Coronal and Sagittal reconstruction series were provided. One or more dose reduction techniques were used (e.g., Automated exposure control, adjustment of the mA and/or kV according to patient size, use of iterative reconstruction technique. RADIATION DOSE SUMMARY: CTDlvol: 27.53 mGy DLP: 569.69 mGycm COMPARISON: None FINDINGS: Bones: Comminuted fracture of the proximal ulna at the base of the olecranon. The trochlea appears intact. Tiny fracture fragment is seen adjacent to the radial head. Capitellum in distal humerus intact otherwise. Joints: No dislocation Soft Tissues: Mild soft tissue hematoma at the fracture site. CT/Extremity Upper without Contra IMPRESSION: Fractures of the proximal ulna at the base of the olecranon with 2 or more fracture fragments. fracture of the radial head Reading Location: [facility] CC: Dr. Bradford Hogue MD; No Primary Care Physician ~ Salvage Supervisor: Signed [facility]07-25-2025 Evaluation note* Diagnosis Onset Date Resolution Status Admit Date Closed comminuted fracture o f proximal end of right radius acute Mar 8:23am Closed comminuted fracture o f proximal end of right ulna acute April 20, 2025 8:23am Closed comminuted fracture o f proximal end of right radius acute Mar 8:05am Closed comminuted fracture o f proximal end of right ulna acute April 23, 2025 8:05am [facility] [place]: [phone] Evaluation note* Diagnosis Onset Date Resolution Status Admit Date Closed comminuted fracture o f proximal end of right radius acute Mar 8:23am Closed comminuted fracture o f proximal end of right ulna acute April 20, 2025 8:23am Closed comminuted fracture o f proximal end of right radius acute Mar 8:05am Closed comminuted fracture o f proximal end of right ulna acute April 23, 2025 8:05am Closed comminuted fracture o f proximal end of right radius acute Mar 10:05am Closed comminuted fracture o f proximal end of right ulna acute April 26, 2025 10:05am Fracture of right olecranon process acute April 26, 2025 10:05am [facility] Work Phone: Consult note Author Guru Willis [facility] Note Date/Time April 26, 2025 2:42 pm [facility] Medical Records Department [address] [place] [place] [address] Anesthesia Postop Eval II 04/26/25 1442 MR#: [id number] Acct: [id number] Name: STARR GUZMAN Rep #:[id number] : 1960 65 From: Guru Vo PCP: Care Physician,No Primary Status :REG SDC Y Race: C Location: [facility]02- Anesthesia Postop Eval I Sum Postop Eval Completion status Anesthesia document: Postop Eval 1 completed: Yes Anesthesia Postop Eval I Summary Anesthesia Postop Eval I Summary: Anesthesia Postop Eval I: Assessment Summary Airway patent Yes 04/26/25 13:10 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 Spontaneous unlabored Yes 04/26/25 13:10 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 respirations Mental status Awake,Calm 04/26/25 13:10 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 nausea No 04/26/25 13:10 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 Vomiting No 04/26/25 13:10 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 Anesthesia Postop Eval I: Fluid Summary Crystalloid volume administer 900 04/26/25 13:10 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 (ml) Colloids volume administered ( ml) Blood Product volume administered (ml) Total IV fluid infused 900 04/26/25 13:10 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 Anesthesia Postop Eval I: Summary Notes Anesthesia Complication No 04/26/25 13:10 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 04/26/25 1442 <Electronically signed by Guru Willis MD> Date _ Guru Willis MD Cosigner Signature: Date CC: ~ Signed [facility] Work Phone: Evaluation noteNo assessment information available [facility]: Reason for referral (narrative)No reason for referral [facility] [place] [facility]: Chief Complaint and Reason for Visit Chief Complaint Admit Date XRAY April 20, 2025 8:01 am Chief Complaint Admit Date XRAY April 20, 2025 8:01 am elbow injury April 20, 2025 8:23 am Chief Complaint Admit Date XRAY April 20, 2025 8:01 am elbow injury April 20, 2025 8:23 am RT OLECRANON FRACTURE/ADD ON April 20, 2025 9:42am RIGHT ELBOW April 23, 2025 8:05 am Reason for Visit Admit Date Closed comminuted fracture of proximal e nd of right radius April 20, 2025 8:23am Closed comminuted fracture of proximal e nd of right ulna April 20, 2025 8:23am Closed comminuted fracture of proximal e nd of right radius April 23, 2025 8:05am Closed comminuted fracture of proximal e nd of right ulna April 23, 2025 8:05am Reason for Visit Admit Date Closed comminuted fracture of proximal e nd of right radius April 20, 2025 8:23am Closed comminuted fracture of proximal e nd of right ulna April 20, 2025 8:23am Closed comminuted fracture of proximal e nd of right radius April 23, 2025 8:05am Closed comminuted fracture of proximal e nd of right ulna April 23, 2025 8:05am Closed comminuted fracture of proximal e nd of right radius April 26, 2025 10:05am Closed comminuted fracture of proximal e nd of right ulna April 26, 2025 10:05am Fracture of right olecranon process April 26, 2025 10:05am Summary Purpose Family History No Family History Records Found Advance Directives No Advanced Directives Records Found Additional Source Comments Care Teams (unrecognized sec tion and content) Team Status: Inactive Member Role/Relationship Status Dates Dr. Fran oH MD Attending Provider Active S tart: April 20, 2025 End: April 20, 2025 Team Status: Inactive Member Role/Relationship Status Dates Colton DINH PA Attending Provider Active Sta rt: April 20, 2025 End: April 20, 2025 Team Status: Active Member Role/Relationship Status Dates Bradford Hogue MD Attending Provider Active St art: April 20, 2025 Bradford Hogue MD Referring Provider Active St art: April 20, 2025 No Primary Care Physician Primary Care Provider Active Start: April 20, 2025 Team Status: Inactive Member Role/Relationship Status Dates Bradford Hogue MD Attending Provider Active St art: April 23, 2025 End: April 23, 2025 Team Status: Inactive Member Role/Relationship Status Dates Bradford Hogue MD Attending Provider Active St art: April 20, 2025 End: April 20, 2025 Bradford Hogue MD Referring Provider Active St art: April 20, 2025 End: April 20, 2025 No Primary Care Physician Primary Care Provider Active Start: April 20, 2025 End: April 20, 2025 Team Status: Active Member Role/Relationship Status Dates No Primary Care Physician Primary Care Provider Active Team Status: Inactive Member Role/Relationship Status Dates Dr. Fran Ho MD Attending Provider Active S tart: April 20, 2025 End: April 20, 2025 Team Status: Inactive Member Role/Relationship Status Dates Colton DINH PA Attending Provider Active Sta rt: April 20, 2025 End: April 20, 2025 Team Status: Inactive Member Role/Relationship Status Dates Bradford Hogue MD Attending Provider Active St art: April 20, 2025 End: April 20, 2025 Bradford Hogue MD Referring Provider Active St art: April 20, 2025 End: April 20, 2025 No Primary Care Physician Primary Care Provider Active Start: April 20, 2025 End: April 20, 2025 Team Status: Inactive Member Role/Relationship Status Dates Bradford Hogue MD Attending Provider Active St art: April 23, 2025 End: April 23, 2025 Team Status: Inactive Member Role/Relationship Status Dates Bradford Hogue MD Attending Provider Active St art: April 26, 2025 End: April 26, 2025 Bradford Hogue MD Referring Provider Active St art: April 26, 2025 End: April 26, 2025 No Primary Care Physician Primary Care Provider Active Start: April 26, 2025 End: April 26, 2025 Team Status: Active Member Role/Relationship Status Dates Bradford Hogue MD Attending Provider Active St art: April 26, 2025 Bradford Hogue MD Referring Provider Active St art: April 26, 2025 Bradford Hogue MD Other Provider Active Start: April 26, 2025 No Primary Care Physician Primary Care Provider Active Start: April 26, 2025 Goals (unrecognized section and content) Goals may be documented in a n alternate sectionGoals may be documented in an alternate sectionGoals may be documented in an alternate sectionGoals may be documented in an alternate section INFORMATION SOURCE (unrecogn ized section and content) DATE CREATED AUTHOR 04/25/2025 [facility] FOR RECORDS PERTAINING TO PATIENTS WHO ARE OR HAVE BEEN ENROLLED IN A CHEMICAL DEPENDENCY/SUBSTANCEABUSE PROGRAM, SOME INFORMATION MAY BE OMITTED. This clinical summary was aggregated from multiple sources. Caution should be exercised in using it in the provision of clinical care. This summary normalizes information from multiple sources, and as a consequence, information in this document may materially change the coding, format and clinical context of patient data. In addition, data may be omitted in some cases. CLINICAL DECISIONS SHOULD BE BASED ON THE PRIMARY CLINICAL RECORDS. [email or web address] provides no warranty or guarantee of the accuracy or completeness of information in this document.
== END 2025-04-26 16:36 | disposition home or self-care (01) ==
LOC: SDC 10:06 → AC 10:07
PROVIDERS: Referring Provider Orthopaedic Surgery Sports Medicine; Visit Provider Orthopaedic Surgery Sports Medicine
PROC: (CPT 24685; principal; 2025-04-26 11:45)
DX: S52.031A Displaced fracture of olecranon process with intraarticular extension of right ulna, initial encounter for closed fracture (principal); S52.121A Displaced fracture of head of right radius, initial encounter for closed fracture; W19.XXXA Unspecified fall, initial encounter
CPT/HCPCS: 24685; 24130; 24650; 73070; 76000; C1713; J2405